=== PATIENT | male | born 1960 | race Caucasian/White ===

== ENCOUNTER → 2022-04-17 | Outpatient (CLI) | payer OTHER, SELFPAY ==
[2022-04-17 12:24] LABS: Absolute Lymphocyte Count 1.32 X10^3/uL (0.83-4.51); Absolute Neutrophil Count 4.5 X10^3/uL (2.0-7.7); Basophil# 0.06 X10^3/uL; Basophil% 0.9 % (0-1); Eosinophil# 0.22 X10^3/uL; Eosinophils% 3.2 % (0-5); Hemoglobin 14.8 g/dL (13.0-16.5); Lymphocyte # 1.32 X10^3/ul (0.83-4.51); Lymphocyte % 19.4 % (19-41); Mean Corp Hgb Conc 32.9 g/dL (32-36); Mean Platelet Vol. 11.1 fl (6.2-12.0); Monocyte# 0.59 X10^3/uL; Monocyte% 8.7 % (0-10); NRBC Flagged by Analyzer 0 % (0-5); Neutrophil # 4.54 X10^3/uL (2.7-7.7); Neutrophil % 66.8 % (47-70); Platelet Count 176 K/mm3 (150-450); RBC Distribution Width CV 15.3 % (11.6-14.6); RBC Distribution Width SD 45.8 fl (35.1-43.9); Red Blood Count 5.49 M/mm3 (4.6-6.2); White Blood Count 6.8 K/mm3 (4.4-11.0)
[2022-04-17 12:31] LABS: ALB/GLOB Ratio 0.9 RATIO (0.9-2.4); AST(SGOT) 19 U/L (15-37); Alanine Aminotransfer ALT/SGPT 25 U/L (16-61); Albumin, Serum 3.6 g/dL (3.2-5.0); Alkaline Phosphatase 45 U/L (45-117); Anion Gap 5 (5-15); BUN 14 mg/dL (7-18); BUN/Creat Ratio 15.8 RATIO (10-20); Calcium,Total 8.9 mg/dL (8.5-10.1); Chloride 107 mmol/L (98-107); Cholesterol 188 mg/dL (200); Creatinine, Serum 0.89 mg/dL (0.70-1.30); EST Glomerular Filtration Rate 93 mL/min (>60); Est Glom Filt Rate - Afr Amer 112 mL/min (>60); Glucose 93 mg/dL (74-106); High Density Lipoprotein 49 mg/dL; Protein, Total 7.6 g/dL (6.4-8.2); Sodium Level 140 mmol/L (136-145); Triglycerides 63 mg/dL; Very Low Density Lipoprotein 13 mg/dL (5-40)
[2022-04-17 12:35] LABS: Vitamin B12 974 pg/mL (211-911); Vitamin D,25 Hydroxy 50.9 ng/mL
== END | disposition home or self-care (01) ==
LOC: BIMLAB 10:53
PROVIDERS: PCP Internal Medicine; Referring Provider Internal Medicine; Visit Provider Internal Medicine
DX: Z00.00 Encounter for general adult medical examination without abnormal findings (principal); G11.4 Hereditary spastic paraplegia; E53.8 Deficiency of other specified B group vitamins; E55.9 Vitamin D deficiency, unspecified; E78.00 Pure hypercholesterolemia, unspecified
CPT/HCPCS: 36415; 80053; 80061; 82306; 82607; 85025

== ENCOUNTER → 2023-04-23 | Outpatient (CLI) | payer OTHER, SELFPAY ==
[2023-04-23 12:41] LABS: Absolute Lymphocyte Count 1.43 X10^3/uL (0.83-4.51); Absolute Neutrophil Count 6.3 X10^3/uL (2.0-7.7); Basophil# 0.04 X10^3/uL; Basophil% 0.5 % (0-1); Eosinophil# 0.17 X10^3/uL; Hematocrit 46.9 % (40-54); Lymphocyte # 1.43 X10^3/ul (0.83-4.51); Lymphocyte % 16.7 % (19-41); Mean Corpuscular Hgb 26.3 pg (27.0-32.0); Mean Corpuscular Volume 82.1 fL (80-94); Mean Platelet Vol. 11.1 fl (6.2-12.0); Monocyte# 0.64 X10^3/uL; Monocyte% 7.5 % (0-10); NRBC Flagged by Analyzer 0 % (0-5); Neutrophil # 6.26 X10^3/uL (2.7-7.7); Neutrophil % 73.1 % (47-70); Platelet Count 197 K/mm3 (150-450); RBC Distribution Width CV 16.4 % (11.6-14.6); RBC Distribution Width SD 48.7 fl (35.1-43.9); Red Blood Count 5.71 M/mm3 (4.6-6.2); White Blood Count 8.6 K/mm3 (4.4-11.0)
[2023-04-23 13:09] LABS: Vitamin B12 941 pg/mL (211-911); Vitamin D,25 Hydroxy 56.6 ng/mL
[2023-04-23 13:28] LABS: ALB/GLOB Ratio 0.9 RATIO (0.9-2.4); AST(SGOT) 18 U/L (15-37); Alanine Aminotransfer ALT/SGPT 26 U/L (16-61); Albumin, Serum 3.6 g/dL (3.2-5.0); Alkaline Phosphatase 42 U/L (45-117); Anion Gap 4 (5-15); BUN 15 mg/dL (7-18); BUN/Creat Ratio 18.1 RATIO (10-20); Calcium,Total 8.8 mg/dL (8.5-10.1); Chloride 109 mmol/L (98-107); Cholesterol 196 mg/dL (200); Creatinine, Serum 0.83 mg/dL (0.70-1.30); EST Glomerular Filtration Rate 100 mL/min (>60); Est Glom Filt Rate - Afr Amer 121 mL/min (>60); Glucose 103 mg/dL (74-106); High Density Lipoprotein 49 mg/dL; Potassium 4.3 mmol/L (3.5-5.1); Protein, Total 7.6 g/dL (6.4-8.2); Sodium Level 141 mmol/L (136-145); Triglycerides 90 mg/dL; Very Low Density Lipoprotein 18 mg/dL (5-40)
== END | disposition home or self-care (01) ==
LOC: BIMLAB 09:49
PROVIDERS: PCP Internal Medicine; Referring Provider Internal Medicine; Visit Provider Internal Medicine
DX: Z00.00 Encounter for general adult medical examination without abnormal findings (principal); G11.4 Hereditary spastic paraplegia; E53.8 Deficiency of other specified B group vitamins; E55.9 Vitamin D deficiency, unspecified; E78.00 Pure hypercholesterolemia, unspecified
CPT/HCPCS: 36415; 80053; 80061; 82306; 82607; 85025

== ENCOUNTER → 2023-08-28 | Outpatient (CLI) | payer OTHER, SELFPAY | END | disposition home or self-care (01) | LOC: LABSPEC 15:49 | PROVIDERS: PCP Internal Medicine; Visit Provider Internal Medicine | DX: J06.9 Acute upper respiratory infection, unspecified (principal) | CPT/HCPCS: 87502; 87635 ==

== ENCOUNTER → 2024-04-28 | Outpatient (CLI) | payer OTHER, SELFPAY ==
--- OUTSIDE RECORDS SUMMARY | 2024-04-28 08:30 | XMS RPT_ITS | CCD ---
Author Organization [facility] Care Team Providers Care Rack Room Worker Name Role Phone Mickey Schmidt MD Unavailable Asa Godinez MD Primary Care Provider Mickey Schmidt MD Unavailable Enedelia Godinez MD Primary Care Provider Mickey Schmidt MD Unavailable Herbert FUNEZ, Asa De La Torre Primary Care Provider Mickey Schmidt MD Unavailable Asa Godinez MD Primary Care Provider Unava ilable Herbert FUNEZ, Asa G Primary Care Provider [phone] Herbert FUNEZ, Asa De La Torre Primary Care Provider MICKEY SCHMIDT Referring Unavailable HERBERT, ASA G Primary Care Unavailable MICKEY SCHMIDT Referring Unavailable HERBERT, ASA G Primary Care Unavailable VERNELL ATKINSON Referring Unavailable HERBERT, ASA G Primary Care Unavailable VERNELL ATKINSON Referring Unavailable HERBERT, ASA G Primary Care Unavailable VERNELL ATKINSON Referring Unavailable HERBERT, ASA G Primary Care Unavailable HERBERT, ASA G Primary Care Unavailable CHRIS WISE Referring Unavai lable HERBERT, ASA G Primary Care Unavailable CHRIS WISE Referring Unavai lable HERBERT, ASA G Primary Care Unavailable CHRIS WISE Referring Unavai lable HERBERT, ASA G Primary Care Unavailable HERBERT, ASA G Primary Care Unavailable MICKEY SCHMIDT Attending Unavailable MICKEY SCHMIDT Referring Unavailable HERBERT, ASA G Primary Care Unavailable REJI FARR Attending Unavailable REJI FARR Referring Unavailable HERBERT, ASA G Primary Care Unavailable MICKEY SCHMIDT Attending Unavailable MICKEY SCHMIDT Referring Unavailable HERBERT, ASA G Primary Care Unavailable HERBERT, ASA G Primary Care Unavailable HERBERT, ASA G Primary Care Unavailable Medications Current Medications Medication Drug Class(es) Dates Sig (Normalized) Sig (Original) baclofen 10 mg oral tablet (19 sources) gamma-Aminobutyri c Acid-ergic Agonist Start: 06-12-2023 End: 01-21-2025 take 2 tablets by mouth three times daily baclofen 10 mg tablet Take 2 tablets by mouth three times a day. 540 tablet 3 01/22/2024 01/21/2025 Active Start: 06-06-2022 End: 06-06-2023 take 2 tablets by mouth three times daily baclofen (LIORESAL) 10 mg tablet Take 2 tablets by mouth three times daily. 540 tablet 3 06/06/2022 06/06/2023 Active Start: 04-26-2021 End: 04-26-2022 take 2 tablets by mouth three times daily baclofen (LIORESAL) 10 mg tablet Take 2 tablets by mouth three times daily. 540 tablet 3 04/26/2021 04/26/2022 Active Comment on above: Take 2 tablets by mo uth three times daily. Take 2 tablets by mo uth three times a day. cholecalciferol 0.025 mg oral capsule (20 sources) Vitamin D take 1 capsule by mouth once daily Cholecalciferol, Vitamin D3, 25 mcg (1,000 unit) cap Take 1,000 Units by mouth once daily. Active Comment on above: Take 1,000 Units by mouth once daily. gabapentin 100 mg oral capsule (20 sources) Anti-epileptic Agent Start: End: take 2 capsules by mouth once daily at bedtime gabapentin (NEURONTIN) 100 mg capsule Take 2 capsules by mouth daily at bedtime. 60 capsule 11 01/22/2024 01/21/2025 Active Start: 04-26-2021 End: 06-11-2024 take 1 capsule by mouth once daily at bedtime gabapentin (NEURONTIN) 300 mg capsule Take 1 capsule by mouth daily at bedtime. 90 capsule 3 06/12/2023 01/22/2024 Discontinued Comment on above: Take 1 capsule by mo ut daily at bedtime. lactulose 667 mg/ml oral solution (20 sources) Osmotic Laxative Start: 06-22-2021 lactulose (DUPHALAC, CONSTULOSE) 10 gram/15 mL solution Indications: Constipation, unspecified constipation type TAKE 30 ML EVERY OTHER DAY 450 mL 1 06/22/2021 Active Comment on above: TAKE 30 ML EVERY OTH ER DAY Msqew-5-JZK-EPA-Fis h Oil 1,000 mg (120 mg-180 mg) cap (16 sources) take 1 capsule by mouth once daily Pxwga-7-VUX-EPA-Fish Oil 1,000 mg (120 mg-180 mg) cap Take 1,000 mg by mouth once daily. Active take 1 capsule by mouth once elizabeth ly Lwyqr-2-WNP-EPA-Fish Oil 1,000 mg (120 mg- 180 mg) cap Take 1,000 mg by mouth once daily. 0 Active Comment on above: Take 1,000 mg by fidelina once daily. polyethylene glycol 3350 704454 mg / potassium chloride 2970 mg / sodium bicarbonate 6740 mg / sodium chloride 5860 mg / sodium sulfate 85040 mg powder for oral solution (2 sources) Osmotic Laxative Start: 2 End: 2 peg 3350-Electrolytes (GOLYTELY) 236-22.74-6.74 -5.86 gram suspension Take 4,000 mL by mouth one time only for 1 dose. Use as directed 1 Each 0 05/27/2022 05/27/2022 Active Comment on above: Take 4,000 mL by fidelina one time only for 1 dose. Use as directed solifenacin succinate 10 mg oral tablet (20 sources) Cholinergic Muscarinic Antagonist Start: 2 End: 5 take 1 tablet by mouth once daily solifenacin (VESICARE) 10 mg tablet Take 1 tablet by mouth once daily. 90 tablet 3 01/22/2024 01/21/2025 Active Start: 04-26-2021 End: 04-26-2022 take 1 tablet by mouth once daily solifenacin (VESICARE) 10 mg tablet Take 1 tablet by mouth once daily. 90 tablet 3 04/26/2021 Active Comment on above: Take 1 tablet by fidelina th once daily. tamsulosin hydrochloride 0.4 mg oral capsule (18 sources) alpha-Adrenergic Herman Start: 2 tamsulosin (FLOMAX) 0.4 mg 0.4 mg once daily. 10/16/2021 Active Comment on above: 0.4 mg once daily. vitamin b12 1 mg extended release oral tablet (20 sources) Vitamin B12 Start: 2 take 1 tablet by mouth once daily Cyanocobalamin 1,000 mcg TbER Indications: Vitamin B12 deficiency TAKE 1 TABLET BY MOUTH EVERY DAY 90 tablet 1 10/08/2021 Active Start: 04-24-2021 take 1 tablet by fidelina th once daily cyanocobalamin (VITAMIN B-12) 1,000 mcg tab Indications: Vitamin B12 deficiency Take 1 tablet by mouth once daily. 90 tablet 1 04/24/2021 Active Comment on above: Take 1 tablet by fidelina th once daily. TAKE 1 TABLET BY FIDELINA TH EVERY DAY Completed/Discontinued Medications Medication Drug Class(es) Dates Sig (Normalized) Sig (Original) onabotulinumtoxina 100 unt injection (6 sources) Acetylcholine Release Inhibitor Start: 05-23-2023 End: 05-23-2023 onabotulinum toxin type A 600 Units injection (BOTOX) Start: 02-21-2023 End: 02-21-2023 onabotulinum toxin type A 50 0 Units injection (BOTOX) Start: 11-08-2022 End: 11-08-2022 onabotulinum toxin type A 50 0 Units injection (BOTOX) Start: 06-25-2022 End: 06-25-2022 onabotulinum toxin type A 30 0 Units injection (BOTOX) Start: 03-21-2022 End: 03-21-2022 onabotulinum toxin type A 30 0 Units injection (BOTOX) Start: 12-13-2021 End: 12-13-2021 onabotulinum toxin type A 20 0 Units injection (BOTOX) Lactobacillus acidophilus (6 sources) End: 03-21-2022 Lactobacillus acidophilus (F LORAJEN ORAL) Take by mouth once daily. 0 03/21/2022 Discontinued Lactobacillus ac idophilus (FLORAJEN ORAL) Take by mouth once daily. 0 Active Comment on above: Take by mouth once d aily. Kdhqm-7-VEQ-EPA-Fish Oil (FISH OIL) 1,000 mg (120 mg-180 mg) cap (5 sources) take 1 capsule by mouth once daily Ubvfa-3-ZHC-EPA-Fish Oil (FISH OIL) 1,000 mg (120 mg-180 mg) cap Take 1,000 mg by mouth once daily. 0 Active Comment on above: Take 1,000 mg by fidelina th once daily. Problems Active Problems Problem Classification Problem Date Documented Da te Episodic/Chronic Hyperplasia of prostate (2 sources) Benign prostatic hyperplasia with lower urinary tract symptoms; Translations: [Nodular prostate with lower urinary tract symptoms] Onset: 07-08-2023 Chronic Other connective tissue disease (7 sources) Muscle spasticity present; Translations: [Other muscle spasm] Episodic Other connective tissue disease (1 source) Spasticity; Translations: [Cramp and spasm] Episodic Other diseases of bladder and urethra (3 sources) Overactive bladder; Translations: [Overactive bladder] Chronic Other hereditary and degenerative nervous system conditions (20 sources) Hereditary spastic paraplegia; 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] Onset: 10-10-2022 Chronic Other hereditary and degenerative nervous system conditions (1 source) Dystonia; 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] Chronic Residual codes; unclassified (2 sources) Family history of cancer of colon; Translations: [Family history of malignant neoplasm of digestive organs] Episodic Residual codes; unclassified (1 source) Bilateral lower limb edema; Translations: [Localized edema] 01-22-2024 Episodic Residual codes; unclassified (2 sources) Localized edema; Translations: [Localized edema] Onset: 01-28-2024 Episodic Past or Other Problems Problem Classification Problem Date Documented Da te Episodic/Chronic Genitourinary symptoms and ill-defined conditions (1 source) Other retention of urine; Translations: [Nodular prostate with urinary retention] Onset: 07-08-2023 Episodic Other diseases of kidney and ureters (1 source) Other obstructive and reflux uropathy; Translations: [Hypertrophy of prostate with urinary obstruction] Onset: 11-13-2023 Episodic Other screening for suspected conditions (not mental disorders or infectious disease) (5 sources) Patient encounter status; Translations: [Encounter for screening for malignant neoplasm of colon] Onset: 06-17-2023 Episodic Results Test Name Value Interpretation Reference Range Facility ECHO 03-10-2024 CONCLUSIONS: - Exam indication: Shortness of Breath - The left ventricle is normal in size. Left ventricular systolic function is normal. EF = 61 5% (2D 4-ch.) Normal left ventricular diastolic function. - The right ventricle is normal in size. Right ventricular systolic function is normal. Tricuspid annular displacement is 3.1 cm. - There are no significant valvular abnormalities. - There is no pericardial effusion. - The patient has not had a prior [facility] echocardiographic exam for comparison. * * * Final * * * [facility] Ech[facility] Report: Transthoracic Echo [facility] Date of service: 03/10/2024 2:17:15 PM Ordering physician: [facility] PROVIDER Indication: Shortness of Breath Technologist: Hermelinda Vallejo [facility] Interpreting physician: Juventino Delgado MD PATIENT: Name: GAURANG TORRES : 1960 Age: 63 years Gender: M Primary rhythm: sinus. Height: 188.00 cm BSA: 2.25 m Weight: 97.00 kg BMI: 27.4 kg/m Heart rate 69 bpm Blood pressure 129/72 mmHg Color Doppler was utilized to interrogate the cardiac valves assessed and spectral Doppler was utilized to determine the flow velocities and pressure gradients reported in this exam. MEASUREMENTS: Value Indexed Normal Max aortic dimension 3.7 cm Ao < 3.8 Left atrium diameter 4.2 cm (2D) Left atrial volume 74 ml (biplane A-L) 33 ml/m Lori <= 34 LV ID (diastole) 5.0 cm (2D) 2.22 cm/m LV ID (systole) 3.4 cm (2D) 1.50 cm/m IVS, leaflet tips 1.0 cm (2D) Posterior wall thickness 1.1 cm (2D) Left ventricular mass 193 g (2D) 86 g/m LV stroke volume 79 ml (2D 4-ch.) LV end diastolic volume 129 ml (2D 4-ch.) 57.3 ml/m 34<=EDVi<75 LV end systolic volume 50 ml (2D 4-ch.) 22.3 ml/m Ejection Fraction 61 % (2D 4-ch.) EF > 52 FINDINGS: LEFT VENTRICLE The left ventricle is normal in size. Left ventricular systolic function is normal. Normal left ventricular diastolic function. Mitral annular lateral E/e': 6.2. Mitral annular septal E/e': 7.0. Wall Motion: All scored segments are normal. RIGHT VENTRICLE The right ventricle is normal in size. Right ventricular systolic function is normal. Tricuspid annular displacement is 3.1 cm. Estimated right ventricular systolic pressure is likely underestimated due to a weak or incomplete tricuspid regurgitation signal and is, at least, 22 mmHg consistent with normal pulmonary artery pressures. Estimated right atrial pressure is 3 mmHg based on IVC assessment. LEFT ATRIUM The left atrial cavity is normal in size. RIGHT ATRIUM The right atrial cavity is normal in size. Inferior Vena Cava: The inferior vena cava appears normal measuring 2.0 cm. The vessel decreases greater than 50 percent with inspiration. MITRAL VALVE The mitral valve leaflets are structurally normal. There is trace mitral valve regurgitation. The peak mitral E/A ratio is 0.77. The average mitral E/e' ratio is 6.6. TRICUSPID VALVE The tricuspid valve leaflets are structurally normal. There is trace tricuspid valve regurgitation. AORTIC VALVE The aortic valve cusps are structurally normal. There is no aortic valve regurgitation. The peak gradient is 8 mmHg (peak velocity = 145.0 cm/s). The mean gradient is 4 mmHg. The aortic VTI is 28.5 cm. The mean velocity in the aortic valve is 98.2 cm/s. The dimensionless valve index is 0.88. PULMONIC VALVE The pulmonic valve cusps are structurally normal. There is trace pulmonic valve regurgitation. AORTA The visualized aorta is normal in size. Measurements - Sinus: 3.3 cm. Sinotubular junction 3.2 cm. Mid ascending aorta 3.7 cm. PERICARDIUM There is no pericardial effusion. [facility] Echocardiography Echocardiography Rep ort: Transthoracic Echo [facility] Date of service: 03/10/2024 2:17:15 PM Ordering physician: LIZ PROVIDER Indication: Shortness of Breath Technologist: Hermelinda Vallejo [facility] Interpreting physician: Juventino Delgado MD PATIENT: Name: GAURANG TORRES : 1960 Age: 63 years Gender: M Primary rhythm: sinus. Height: 188.00 cm BSA: 2.25 m Weight: 97.00 kg BMI: 27.4 kg/m Heart rate 69 bpm Blood pressure 129/72 mmHg Color Doppler was utilized to interrogate the cardiac valves assessed and spectral Doppler was utilized to determine the flow velocities and pressure gradients reported in this exam. MEASUREMENTS: Value Indexed Normal Max aortic dimension 3.7 cm Ao < 3.8 Left atrium diameter 4.2 cm (2D) Left atrial volume 74 ml (biplane A-L) 33 ml/m Lori <= 34 LV ID (diastole) 5.0 cm (2D) 2.22 cm/m LV ID (systole) 3.4 cm (2D) 1.50 cm/m IVS, leaflet tips 1.0 cm (2D) Posterior wall thickness 1.1 cm (2D) Left ventricular mass 193 g (2D) 86 g/m LV stroke volume 79 ml (2D 4-ch.) LV end diastolic volume 129 ml (2D 4-ch.) 57.3 ml/m 34<=EDVi<75 LV end systolic volume 50 ml (2D 4-ch.) 22.3 ml/m Ejection Fraction 61 % (2D 4-ch.) EF > 52 FINDINGS: LEFT VENTRICLE The left ventricle is normal in size. Left ventricular systolic function is normal. Normal left ventricular diastolic function. Mitral annular lateral E/e': 6.2. Mitral annular septal E/e': 7.0. Wall Motion: All scored segments are normal. RIGHT VENTRICLE The right ventricle is normal in size. Right ventricular systolic function is normal. Tricuspid annular displacement is 3.1 cm. Estimated right ventricular systolic pressure is likely underestimated due to a weak or incomplete tricuspid regurgitation signal and is, at least, 22 mmHg consistent with normal pulmonary artery pressures. Estimated right atrial pressure is 3 mmHg based on IVC assessment. LEFT ATRIUM The left atrial cavity is normal in size. RIGHT ATRIUM The right atrial cavity is normal in size. Inferior Vena Cava: The inferior vena cava appears normal measuring 2.0 cm. The vessel decreases greater than 50 percent with inspiration. MITRAL VALVE The mitral valve leaflets are structurally normal. There is trace mitral valve regurgitation. The peak mitral E/A ratio is 0.77. The average mitral E/e' ratio is 6.6. TRICUSPID VALVE The tricuspid valve leaflets are structurally normal. There is trace tricuspid valve regurgitation. AORTIC VALVE The aortic valve cusps are structurally normal. There is no aortic valve regurgitation. The peak gradient is 8 mmHg (peak velocity = 145.0 cm/s). The mean gradient is 4 mmHg. The aortic VTI is 28.5 cm. The mean velocity in the aortic valve is 98.2 cm/s. The dimensionless valve index is 0.88. PULMONIC VALVE The pulmonic valve cusps are structurally normal. There is trace pulmonic valve regurgitation. AORTA The visualized aorta is normal in size. Measurements - Sinus: 3.3 cm. Sinotubular junction 3.2 cm. Mid ascending aorta 3.7 cm. PERICARDIUM There is no pericardial effusion. CONCLUSIONS: - Exam indication: Shortness of Breath - The left ventricle is normal in size. Left ventricular systolic function is normal. EF = 61 5% (2D 4-ch.) Normal left ventricular diastolic function. - The right ventricle is normal in size. Right ventricular systolic function is normal. Tricuspid annular displacement is 3.1 cm. - There are no significant valvular abnormalities. - There is no pericardial effusion. - The patient has not had a prior [facility] echocardiographic exam for comparison. * * * Final * * * [facility] [employer] [facility] : [id number] Normal [facility] CBC W Auto Differential pane l (Bld)on 02-27-2024 Basophils (Bld) [#/Vol] 0.04 10*3/uL Normal <0.11 [facility] Comment on above: Order Comment: Mar marrero Type: BLOOD SPECIMEN Ordering Facility: [facility] Address: [address] [place], [place] [id number] Performed By: #### 5 7021-8 #### [facility] CLIA [id number] [address] [place], [place] [id number] [place] Basophils/100 WBC (Bld) 0.6 % Normal [facility] Comment on above: Order Comment: Mar marrero Type: BLOOD SPECIMEN Ordering Facility: [facility] Address: [address] [place] [address] Performed By: #### 5 7021-8 #### [facility] CLIA [id number] [address] [place] [address] [facility] [place] Differential cell count method Nom (Bld) Auto Normal [facility] Comment on above: Order Comment: Speci men Type: BLOOD SPECIMEN Ordering Facility: [facility] Address: [facility] [place] [address] Performed By: #### 5 7021-8 #### [facility] CLIA [id number] [address] [place] [address] [place] Eosinophils (Bld) [#/Vol] 0.26 10*3/uL Normal <0.46 [facility] Comment on above: Order Comment: Speci men Type: BLOOD SPECIMEN Ordering Facility: [facility] Address: [facility] [place] [address] Performed By: #### 5 7021-8 #### [facility] CLIA [id number] [address] [place] [address] [facility] Eosinophils/100 WBC (Bld) 4.0 % Normal [facility] Comment on above: Order Comment: Speci men Type: BLOOD SPECIMEN Ordering Facility: [facility] Address: [facility] [place] [address] Performed By: #### 5 7021-8 #### [facility] CLIA [id number] [address] [place] [address] [facility] [place] Erythrocyte distribution width (RBC) [Ratio] 15.5 % High 11.5-15.0 [facility] Comment on above: Order Comment: Speci men Type: BLOOD SPECIMEN Ordering Facility: [facility] Address: [facility] [place] [address] Performed By: #### 5 7021-8 #### [facility] CLIA [id number] [address] [place] [address] [facility] [place] Hematocrit (Bld) [Volume fraction] 42.6 % Normal 39.0-51.0 [facility] Comment on above: Order Comment: Speci men Type: BLOOD SPECIMEN Ordering Facility: [facility] Address: [facility] [place] [address] Performed By: #### 5 7021-8 #### [facility] CLIA [id number] [address] [place] [address] [place] Hemoglobin (Bld) [Mass/Vol] 13.4 g/dL Normal 13.0-17.0 [facility] Comment on above: Order Comment: Speci men Type: BLOOD SPECIMEN Ordering Facility: [facility] Address: [facility] [place] [address] Performed By: #### 5 7021-8 #### [facility] CLIA [id number] [address] [place] [address] [place] Immature granulocytes (Bld) [#/Vol] 10*3/uL Normal <0.10 [facility] Comment on above: Order Comment: Speci men Type: BLOOD SPECIMEN Ordering Facility: [facility] Address: [facility] [place] [address] Performed By: #### 5 7021-8 #### [facility] CLIA [id number] [address] [place] [address] [place] Immature granulocytes/100 WBC (Bld) 0.2 % Normal [facility] Comment on above: Order Comment: Speci men Type: BLOOD SPECIMEN Ordering Facility: [facility] Address: [facility] [place] [address] Performed By: #### 5 7021-8 #### [facility] CLIA [id number] [address] [place] [address] [place] Lymphocytes (Bld) [#/Vol] 1.64 10*3/uL Normal 1.00-4.00 [facility] Comment on above: Order Comment: Speci men Type: BLOOD SPECIMEN Ordering Facility: [facility] Address: [facility] [place] [address] Performed By: #### 5 7021-8 #### [facility] CLIA [id number] [address] [place] [address] [place] Lymphocytes/100 WBC (Bld) 25.5 % Normal [facility] Comment on above: Order Comment: Speci men Type: BLOOD SPECIMEN Ordering Facility: [facility] Address: [facility] [place] [address] Performed By: #### 5 7021-8 #### [facility] CLIA [id number] [address] [place] [address] [place] MCH (RBC) [Entitic mass] 25.3 pg Low 26.0-34.0 [facility] Comment on above: Order Comment: Speci men Type: BLOOD SPECIMEN Ordering Facility: [facility] Address: [facility] [place] [address] Performed By: #### 5 7021-8 #### [facility] CLIA [id number] [address] [place] [address] [place] MCHC (RBC) [Mass/Vol] 31.5 g/dL Normal 30.5-36.0 [facility] Comment on above: Order Comment: Speci men Type: BLOOD SPECIMEN Ordering Facility: [facility] Address: [facility] [place] [address] Performed By: #### 5 7021-8 #### [facility] CLIA [id number] [address] [place], [place] [address] [place] [address] [place] MCV (RBC) [Entitic vol] 80.5 fL Normal 80.0-100.0 [facility] Comment on above: Order Comment: Speci men Type: BLOOD SPECIMEN Ordering Facility: [facility] Address: [address] [place] [id number] Performed By: #### 5 7021-8 #### [facility] CLIA [id number] [address] [place] [address] [facility] [place] Monocytes (Bld) [#/Vol] 0.62 10*3/uL Normal <0.87 [facility] Comment on above: Order Comment: Speci men Type: BLOOD SPECIMEN Ordering Facility: [facility] Address: [facility] [place] [address] Performed By: #### 5 7021-8 #### [facility] CLIA [id number] [address] [place] [address] [place] Monocytes/100 WBC (Bld) 9.6 % Normal [facility] Comment on above: Order Comment: Speci men Type: BLOOD SPECIMEN Ordering Facility: [facility] Address: [facility] [place] [address] Performed By: #### 5 7021-8 #### [facility] CLIA [id number] [address] [place] [address] [place] Neutrophils (Bld) [#/Vol] 3.87 10*3/uL Normal 1.45-7.50 [facility] Comment on above: Order Comment: Speci men Type: BLOOD SPECIMEN Ordering Facility: [facility] Address: [facility] [place] [address] Performed By: #### 5 7021-8 #### [facility] CLIA [id number] [address] [place] [address] [place] Neutrophils/100 WBC (Bld) 60.1 % Normal [facility] Comment on above: Order Comment: Speci men Type: BLOOD SPECIMEN Ordering Facility: [facility] Address: [facility] [place] [address] Performed By: #### 5 7021-8 #### [facility] CLIA [id number] [address] [place] [address] [place] Nucleated RBC (Bld) [#/Vol] Normal [facility] [facility] Comment on above: Order Comment: Speci men Type: BLOOD SPECIMEN Ordering Facility: [facility] Address: [facility] [place] [address] Performed By: #### 5 7021-8 #### [facility] [place] [facility] CLIA [id number] [address] [place] [address] [place] Nucleated RBC/100 WBC (Bld) [Ratio] Normal [facility] Comment on above: Order Comment: Speci men Type: BLOOD SPECIMEN Ordering Facility: [facility] Address: [facility] [place] [address] Performed By: #### 5 7021-8 #### [facility] CLIA [id number] [address] [place] [address] [place] Platelet mean volume (Bld) [Entitic vol] 11.0 fL Normal 9.0-12.7 [facility] Comment on above: Order Comment: Speci men Type: BLOOD SPECIMEN Ordering Facility: [facility] Address: [place] [address] Performed By: #### 5 7021-8 #### [facility] [place] [facility] CLIA [id number] [address] [place] [address] [place] Platelets (Bld) [#/Vol] 185 10*3/uL Normal 150-400 [facility] Comment on above: Order Comment: Speci men Type: BLOOD SPECIMEN Ordering Facility: [facility] Address: [place] [address] Performed By: #### 5 7021-8 #### [facility] [place] [facility] CLIA [id number] [address] [place] [address] [place] RBC (Bld) [#/Vol] 5.29 10*6/uL Normal 4.20-6.00 [facility] Comment on above: Order Comment: Speci men Type: BLOOD SPECIMEN Ordering Facility: [facility] Address: [place] [address] Performed By: #### 5 7021-8 #### [facility] [place] [facility] CLIA [id number] [address] [place] [address] [place] WBC (Bld) [#/Vol] 6.44 10*3/uL Normal 3.70-11.00 [facility] Comment on above: Order Comment: Speci men Type: BLOOD SPECIMEN Ordering Facility: [facility] Address: [place] [address] Performed By: #### 5 7021-8 #### [facility] [place] [facility] CLIA [id number] [address] [place] [address] [facility] [place] Comprehensive metabolic 2000 panelon 02-27-2024 Albumin [Mass/Vol] 4.1 g/dL Normal 3.9-4.9 [facility] Comment on above: Order Comment: Speci men Type: BLOOD SPECIMEN Ordering Facility: [facility] Address: [address] [place] [address] Performed By: #### 2 4323-8, 41790-7 #### [facility] [place] [facility] CLIA [id number] [address] [place] [address] [place] ALP [Catalytic activity/Vol] 41 U/L Normal 38-113 [facility] Comment on above: Order Comment: Speci men Type: BLOOD SPECIMEN Ordering Facility: [facility] Address: [address] [place] [address] Performed By: #### 2 4323-8, 01934-2 #### [facility] [place] CLIA [id number] [address] [place] [address] [place] ALT With P-5'-P [Catalytic activity/Vol] 17 U/L Normal 10-54 [facility] Comment on above: Order Comment: Speci men Type: BLOOD SPECIMEN Ordering Facility: [facility] Address: [address] [place] [address] Performed By: #### 2 4323-8, 66741-1 #### [facility] [place] CLIA [id number] [address] [place] [address] [place] Anion gap [Moles/Vol] 10 mmol/L Normal 8-15 [facility] Comment on above: Order Comment: Speci men Type: BLOOD SPECIMEN Ordering Facility: [facility] Address: [address] [place] [address] Performed By: #### 2 4323-8, 19133-2 #### [facility] [place] CLIA [id number] [address] [place] [address] [place] AST With P-5'-P [Catalytic activity/Vol] 16 U/L Normal 14-40 [facility] Comment on above: Order Comment: Speci men Type: BLOOD SPECIMEN Ordering Facility: [facility] Address: [address] [place] [address] Performed By: #### 2 4323-8, 62638-1 #### [facility] [place] CLIA [id number] [address] [place] [address] [place] Bilirubin [Mass/Vol] 0.8 mg/dL Normal 0.2-1.3 [facility] Comment on above: Order Comment: Speci men Type: BLOOD SPECIMEN Ordering Facility: [facility] Address: [place] [address] Performed By: #### 2 4323-8, 50048-1 #### [facility] [place] [facility] CLIA [id number] [address] [place] [address] [place] Calcium [Mass/Vol] 8.7 mg/dL Normal 8.5-10.2 [facility] Comment on above: Order Comment: Speci men Type: BLOOD SPECIMEN Ordering Facility: [facility] Address: [address] [place] [address] Performed By: #### 2 4323-8, 06008-9 #### [facility] [place] CLIA [id number] [address] [place] [address] [place] Chloride [Moles/Vol] 105 mmol/L Normal 98-107 [facility] Comment on above: Order Comment: Speci men Type: BLOOD SPECIMEN Ordering Facility: [facility] Address: [place] [address] Performed By: #### 2 4323-8, 33140-3 #### [facility] [place] CLIA [id number] [address] [place] [address] [place] CO2 [Moles/Vol] 27 mmol/L Normal 22-30 [facility] Comment on above: Order Comment: Speci men Type: BLOOD SPECIMEN Ordering Facility: [facility] Address: [place] [address] Performed By: #### 2 4323-8, 97320-1 #### [facility] [place] CLIA [id number] [address] [place] [address] [place] Creatinine [Mass/Vol] 0.92 mg/dL Normal 0.73-1.22 [facility] Comment on above: Order Comment: Speci men Type: BLOOD SPECIMEN Ordering Facility: [facility] Address: [place] [address] Performed By: #### 2 4323-8, 00183-6 #### [facility] CLIA [id number] [address] [place] [address] [facility] [place] Creatinine and Glomerular filtration rate.predicted panel (S/P/Bld) 94 mL/min/1.73m??? Normal >=60 [facility] Comment on above: Order Comment: Mar marrero Type: BLOOD SPECIMEN Ordering Facility: [facility] Address: [address] [place] [address] Result Comment: Court mated Glomerular Filtration Rate (eGFR) is calculated using the 2020 CKD-EPI creatinine equation. This equation utilizes serum creatinine, sex, and age as parameters. The creatinine assay has traceable calibration to isotope dilution-mass spectrometry. Refer to KDIGO guidelines for clinical interpretation. In patients with unstable renal function, e.g. those with acute kidney injury, the eGFR may not accurately reflect actual GFR. Performed By: #### 2 4323-8, 14357-2 #### [facility] CLIA [id number] [address] [place] [address] [place] Glucose [Mass/Vol] 92 mg/dL Normal 74-99 [facility] Comment on above: Order Comment: Mar marrero Type: BLOOD SPECIMEN Ordering Facility: [facility] Address: [address] [place] [address] Result Comment: The [place] Diabetes Association (ADA) provides guidance for cutoff values for fasting glucose and random glucose. The ADA defines fasting as no caloric intake for at least 8 hours. Fasting plasma glucose results between 100 to 125 mg/dL indicate increased risk for diabetes (prediabetes). Fasting plasma glucose results greater than or equal to 126 mg/dL meet the criteria for diagnosis of diabetes. In the absence of unequivocal hyperglycemia, results should be confirmed by repeat testing. In a patient with classic symptoms of hyperglycemia or hyperglycemic crisis, random plasma glucose results greater than or equal to 200 mg/dL meet the criteria for diagnosis of diabetes. Reference: Standards of Medical Care in Diabetes 2016, [place] [employer] Association. Diabetes Care. 2016.39(Suppl 1). Performed By: #### 2 4323-8, 10511-3 #### [facility] CLIA [id number] [address] [place] [address] [place] Potassium [Moles/Vol] 4.0 mmol/L Normal 3.7-5.1 [facility] Comment on above: Order Comment: Speci men Type: BLOOD SPECIMEN Ordering Facility: [facility] Address: [address] [place] [address] Performed By: #### 2 4323-8, 92002-1 #### [facility] CLIA [id number] [address] [place] [address] [place] Protein [Mass/Vol] 7.0 g/dL Normal 6.3-8.0 [facility] Comment on above: Order Comment: Speci men Type: BLOOD SPECIMEN Ordering Facility: [facility] Address: [facility] [place] [address] Performed By: #### 2 4323-8, 61793-0 #### [facility] [place] [facility] CLIA [id number] [address] [place] [address] [place] Sodium [Moles/Vol] 142 mmol/L Normal 136-144 [facility] Comment on above: Order Comment: Speci men Type: BLOOD SPECIMEN Ordering Facility: [facility] Address: [facility] [place] [address] Performed By: #### 2 4323-8, 76512-2 #### [facility] [place] [facility] CLIA [id number] [address] [place] [address] [place] Urea nitrogen [Mass/Vol] 15 mg/dL Normal 9-24 [facility] Comment on above: Order Comment: Speci men Type: BLOOD SPECIMEN Ordering Facility: [facility] Address: [facility] [place] [address] Performed By: #### 2 4323-8, 78119-1 #### [facility] [place] CLIA [id number] [address] [place] [address] [place] NT-proBNP [facility] 02-26 Natriuretic peptide.B prohormone N-Terminal [Mass/Vol] <36 Normal <125 [facility] Comment on above: Order Comment: Speci men Type: BLOOD SPECIMEN Ordering Facility: [facility] Address: [address] [place] [address] Performed By: #### 2 4323-8, 72223-5 #### [facility] CLIA [id number] [address] [place] [address] [facility] Comprehensive metabolic 2000 panelon 01-28-2024 Albumin [Mass/Vol] 4.0 g/dL Normal 3.9-4.9 [facility] Comment on above: Order Comment: Speci men Type: BLOOD SPECIMEN Ordering Facility: [facility] Address: [address] [place] [address] Performed By: #### 2 4323-8 #### [facility] [place] CLIA [id number] [address] [place] [address] [place] ALP [Catalytic activity/Vol] 45 U/L Normal 38-113 [facility] Comment on above: Order Comment: Speci men Type: BLOOD SPECIMEN Ordering Facility: [facility] Address: [address] [place] [address] Performed By: #### 2 4323-8 #### [facility] CLIA [id number] [address] [place] ALT With P-5'-P [Catalytic activity/Vol] 20 U/L Normal 10-54 [facility] Comment on above: Order Comment: Speci men Type: BLOOD SPECIMEN Ordering Facility: [facility] Address: [address] [place] [address] Performed By: #### 2 4323-8 #### [facility] [place] [facility] CLIA [id number] [address] [place] [address] [place] Anion gap [Moles/Vol] 8 mmol/L Normal 8-15 [facility] Comment on above: Order Comment: Speci men Type: BLOOD SPECIMEN Ordering Facility: [facility] Address: [address] [place] [address] Performed By: #### 2 4323-8 #### [facility] [place] [facility] CLIA [id number] [address] [place] [address] [place] AST With P-5'-P [Catalytic activity/Vol] 17 U/L Normal 14-40 [facility] Comment on above: Order Comment: Speci men Type: BLOOD SPECIMEN Ordering Facility: [facility] Address: [address] [place] [address] Performed By: #### 2 4323-8 #### [facility] [place] [facility] CLIA [id number] [address] [place] [address] [place] Bilirubin [Mass/Vol] 0.7 mg/dL Normal 0.2-1.3 [facility] Comment on above: Order Comment: Speci men Type: BLOOD SPECIMEN Ordering Facility: [facility] Address: [address] [place] [address] Performed By: #### 2 4323-8 #### [facility] [place] [facility] CLIA [id number] [address] [place] [address] [place] Calcium [Mass/Vol] 8.5 mg/dL Normal 8.5-10.2 [facility] Comment on above: Order Comment: Speci men Type: BLOOD SPECIMEN Ordering Facility: [facility] Address: [address] [place] [address] Performed By: #### 2 4323-8 #### [facility] [place] [facility] CLIA [id number] [address] [place] [address] [place] Chloride [Moles/Vol] 106 mmol/L Normal 98-107 [facility] Comment on above: Order Comment: Speci men Type: BLOOD SPECIMEN Ordering Facility: [facility] Address: [address] [place] [address] Performed By: #### 2 4323-8 #### [facility] [place] [facility] CLIA [id number] [address] [place] [address] [place] CO2 [Moles/Vol] 27 mmol/L Normal 22-30 [facility] Comment on above: Order Comment: Speci men Type: BLOOD SPECIMEN Ordering Facility: [facility] Address: [address] [place] [address] Performed By: #### 2 4323-8 #### [facility] [place] [facility] CLIA [id number] [address] [place] [address] [place] Creatinine [Mass/Vol] 0.89 mg/dL Normal 0.73-1.22 [facility] Comment on above: Order Comment: Mar marrero Type: BLOOD SPECIMEN Ordering Facility: [facility] Address: [address] [place] [address] Performed By: #### 2 4323-8 #### [facility] CLIA [id number] [address] [place] [address] [facility] [place] Creatinine and Glomerular filtration rate.predicted panel (S/P/Bld) 97 mL/min/1.73m??? Normal >=60 [facility] Comment on above: Order Comment: Mar marrero Type: BLOOD SPECIMEN Ordering Facility: [facility] Address: [address] [place] [address] Result Comment: Court mated Glomerular Filtration Rate (eGFR) is calculated using the 2020 CKD-EPI creatinine equation. This equation utilizes serum creatinine, sex, and age as parameters. The creatinine assay has traceable calibration to isotope dilution-mass spectrometry. Refer to KDIGO guidelines for clinical interpretation. In patients with unstable renal function, e.g. those with acute kidney injury, the eGFR may not accurately reflect actual GFR. Performed By: #### 2 4323-8 #### [facility] CLIA [id number] [address] [place] [address] [place] Glucose [Mass/Vol] 101 mg/dL High 74-99 [facility] Comment on above: Order Comment: Mar marrero Type: BLOOD SPECIMEN Ordering Facility: [facility] Address: [address] [place] [address] Result Comment: The [place] Diabetes Association (ADA) provides guidance for cutoff values for fasting glucose and random glucose. The ADA defines fasting as no caloric intake for at least 8 hours. Fasting plasma glucose results between 100 to 125 mg/dL indicate increased risk for diabetes (prediabetes). Fasting plasma glucose results greater than or equal to 126 mg/dL meet the criteria for diagnosis of diabetes. In the absence of unequivocal hyperglycemia, results should be confirmed by repeat testing. In a patient with classic symptoms of hyperglycemia or hyperglycemic crisis, random plasma glucose results greater than or equal to 200 mg/dL meet the criteria for diagnosis of diabetes. Reference: Standards of Medical Care in Diabetes 2016, [place] Diabetes [employer]. Diabetes Care. 2016.39(Suppl 1). Performed By: #### 2 4323-8 #### [facility] [place] [facility] CLIA [id number] [address] [place] [address] [place] Potassium [Moles/Vol] 4.1 mmol/L Normal 3.7-5.1 [facility] Comment on above: Order Comment: Speci men Type: BLOOD SPECIMEN Ordering Facility: [facility] Address: [address] [place] [address] Performed By: #### 2 4323-8 #### [facility] [place] [facility] CLIA [id number] [address] [place] [address] [place] Protein [Mass/Vol] 6.9 g/dL Normal 6.3-8.0 [facility] Comment on above: Order Comment: Speci men Type: BLOOD SPECIMEN Ordering Facility: [facility] Address: [address] [place] [address] Performed By: #### 2 4323-8 #### [facility] [place] [facility] CLIA [id number] [address] [place] [address] [place] Sodium [Moles/Vol] 141 mmol/L Normal 136-144 [facility] Comment on above: Order Comment: Speci men Type: BLOOD SPECIMEN Ordering Facility: [facility] Address: [address] [place] [address] Performed By: #### 2 4323-8 #### [facility] [place] [facility] CLIA [id number] [address] [place] [address] [place] Urea nitrogen [Mass/Vol] 15 mg/dL Normal 9-24 [facility] Comment on above: Order Comment: Speci men Type: BLOOD SPECIMEN Ordering Facility: [facility] Address: [address] [place] [address] Performed By: #### 2 4323-8 #### [facility] [place] [facility] CLIA [id number] [address] [place] [address] [facility] ECG COMPLETEon 01-28-2024 ECG COMPLETE Ventricular Rate : 7 7 BPM Atrial Rate : 77 BPM P-R Interval : 178 ms QRS Duration : 102 ms Q-T Interval : 382 ms QTC Calculation(Bazett) : 432 ms Calculated P [place] : 54 degrees Calculated R [place] : 2 degrees Calculated T [place] : 32 degrees NORMAL SINUS RHYTHM NORMAL ECG NO PREVIOUS ECGS AVAILABLE Confirmed by MD DELGADO VINAYAK ([id number]) on 01/28/2024 3:58:13 PM NAME : GAURANG TORRES PID : [id number] : 1960 Gender : Male Race : ORD : [id number] Procedure Date : Jan 28 2024 08:56:30 Edit Date : Jan 28 2024 15:58:14 Diagnosis: NORMAL SINUS RHYTHM NORMAL ECG NO PREVIOUS ECGS AVAILABLE Confirmed by MD DELGADO VINAYAK ([id number]) on 01/28/2024 3:58:13 PM Test Reason : HCS Location : 191 : LDCARD Overread By : MD DELGADO VINAYAK Edited By : MD DELGADO VINAYAK Referred By : MICKEY SCHMIDT [facility] Office Visit (NRMDN) GUSTABO TORRESNT Serenity ([id number]) 1960 M Date Time Provider Department 01/22/24 4:30 PM MICKEY SCHMIDT NRDARIANA During your visit today, we recorded the following information about you: Pulse Blood pressure Weight Height 84/minute 116/75 97.3 kg 1.88 m Mickey Schmidt MD 01/22/2024 7:01 PM Signed [facility] - FOLLOW UP EVALUATION Asa Godinez MD [id number] [facility] [facility] [address] Dear Asa Godinez MD: I had the pleasure of seeing Mr. Torres for follow-up today. As you know he is a 63 year old left-handed male with a history of history of hereditary spastic paraparesis since early adulthood . He is seen alone. Subjective Previous Plan-06/12/2023 Visit: [facility] - Medications renewed today. Overactive bladder - Continue Vesicare Interval History: He is getting leg swelling for 3 months. No chest pain or shortness of breath. He remains on Neurontin 300 HS for RLS but this has been well controlled. Spasticity has been about the same but balance is worse. He is taking the Vesicare every other day. Movement Disorders Medications Schedule - as of the start of the visit: Medications AM Noon PM Baclofen 10 mg 2 2 2 Gabapentin 300 mg 1 Vesicare 10 mg 1 Other Movement Disorder Prior Therapies Gabapentin Baclofen Questionnaires: Mood/Behavior Depression: PHQ-9 Score: 2 usually representing no significant (0-4) depression. Anxiety: Finally, the following table shows the patient's overall global physical and mental health using the PROMIS scale: PROMIS-10 Flowsheet Row Office Visit from 01/22/2024 in Neurology Office Visit from 05/23/2023 in Neurology Global Physical Health T Score 47.7 50.8 Global Mental Health T Score 50.8 48.3 0-10 Standard Pain Scale 4 5 *PROMIS-10 scoring scale: mean = 50, over 50 is above average, under 50 is below average ALLERGIES No Known Allergies Current Outpatient Medications Medication Sig solifenacin (VESICARE) 10 mg tablet Take 1 tablet by mouth once daily. gabapentin (NEURONTIN) 300 mg capsule Take 1 capsule by mouth daily at bedtime. baclofen 10 mg tablet Take 2 tablets by mouth three times a day. tamsulosin (FLOMAX) 0.4 mg 0.4 mg once daily. Cyanocobalamin 1,000 mcg TbER TAKE 1 TABLET BY MOUTH EVERY DAY lactulose (DUPHALAC, CONSTULOSE) 10 gram/15 mL solution TAKE 30 ML EVERY OTHER DAY (Patient taking differently: TAKE 30 ML EVERY DAY) Ybylg-6-AHY-EPA-Fish Oil 1,000 mg (120 mg-180 mg) cap Take 1,000 mg by mouth once daily. Cholecalciferol, Vitamin D3, 25 mcg (1,000 unit) cap Take 1,000 Units by mouth once daily. No current facility-administered medications for this visit. Objective Vital Signs: BP 116/75 (BP Site: Left Arm, BP Position: Sitting, BP Cuff Size: Regular Adult) Pulse 84 Ht 188 cm (6' 2 ) Wt 97.3 kg (214 lb 8.1 oz) SpO2 97% BMI 27.54 kg/m? Orthostatic Vitals: None for this encounter Weight: 97.3 kg (214 lb 8.1 oz) Height: 188 cm (6' 2 ) No LMP for male patient. Body mass index is 27.54 kg/m?. General Physical Examination: Extremities: Pitting edema in both legs up above the knee bilaterally General Neurological Examination: Neurological Exam Mental Status Awake, alert and oriented to person, place and time. Recent and remote memory are intact. Speech is normal. Language is fluent with no aphasia. Cranial Nerves CN II-XII grossly intact, except as otherwise noted. Motor Normal muscle bulk throughout. Normal muscle tone. The following abnormal movements were seen: Strength is 5/5 throughout all four extremities. He has left > right spasticity more so in the legs. Gait Casual gait: Wide stance. Spastic gait. Assessment and Plan: Assessment Mr. Torres is a left-handed 63 year old year old male with hereditary spastic paraparesis. The following are the current problems noted and addressed during this visit: Bilateral leg edema Overactive bladder Muscle spasticity Hsp (hereditary spastic paraplegia) (formerly [facility]) (primary encounter diagnosis) Plan 01/22/2024 Visit: HSP - Continue baclofen Leg swelling - I am ordering labs to check your kidneys and an EKG to look at your heart. It will be important to follow up with Dr. Godinez for this soon. Restless Legs Syndrome - Lets reduce the Neurontin to 200 mg at bedtime. If you do well can reduce further since you are doing well. Sometimes, Neurontin can cause leg swelling but usually in higher doses. Patient's perception of importance for healthcare provider to let them know of research trials for which they may be eligible? Somewhat important Updated Movement Disorders Medication Schedule: Medications AM Noon PM Baclofen 10 mg 2 2 2 Gabapentin 300 mg 1 Vesicare 10 mg 1 Thank you for allowing me to be part of the clinical care of this patient! I look forward to continued part (more content not included)... Normal [facility] PSA/PROSTATE SPECIFIC ANTIGE N SCREENINGon 05-09-2024 Prostate specific Ag [Mass/Vol] 2.00 ng/mL Normal <2.60 [facility] Comment on above: Order Comment: Speci men Type: BLOOD SPECIMEN Ordering Facility: [facility] Address: [facility] [place] [address] Result Comment: Tota l PSA test methodology used is the Electrochemiluminescence Immunoassay by [employer]. Total PSA values by differing methodologies cannot be interchanged. Performed By: #### P SAS1 #### [facility] CLIA [id number] [address] [place] [address] [place] Basic metabolic 2000 panelon 07-08-2023 Anion gap [Moles/Vol] 9 mmol/L Normal 9-18 [facility] Comment on above: Order Comment: Speci men Type: BLOOD SPECIMEN [place]ing Facility: [facility] [facility] [place] Address: [address] [place] [address] Performed By: #### 2 4321-2 #### [facility] CLIA [id number] [address] [place] [address] [place] Calcium [Mass/Vol] 8.9 mg/dL Normal 8.5-10.2 [facility] Comment on above: Order Comment: Speci men Type: BLOOD SPECIMEN Ordering Facility: [facility] [place] [facility] [place] Address: [address] [place] [address] Performed By: #### 2 4321-2 #### [facility] CLIA [id number] [address] [place] [address] [place] Chloride [Moles/Vol] 105 mmol/L Normal 97-105 [facility] Comment on above: Order Comment: Speci men Type: BLOOD SPECIMEN Ordering Facility: [facility] [place] [facility] [place] Address: [address] [place] [address] Performed By: #### 2 4321-2 #### [facility] CLIA [id number] [address] [place] [address] [place] CO2 [Moles/Vol] 27 mmol/L Normal 22-30 [facility] Comment on above: Order Comment: Speci men Type: BLOOD SPECIMEN Ordering Facility: [facility] [place] [facility] [place] Address: [address] [place] [address] Performed By: #### 2 4321-2 #### [facility] CLIA [id number] [address] [place] [address] [facility] Creatinine [Mass/Vol] 0.90 mg/dL Normal 0.73-1.22 [facility] Comment on above: Order Comment: Mar men Type: BLOOD SPECIMEN Ordering Facility: [facility] [place] [facility] [place] Address: [address] [place] [address] Performed By: #### 2 4321-2 #### [facility] CLIA [id number] [address] [place] [address] [facility] Creatinine and Glomerular filtration rate.predicted panel (S/P/Bld) 97 mL/min/1.73m??? Normal >=60 [facility] Comment on above: Order Comment: Kunalirvin marrero Type: BLOOD SPECIMEN Ordering Facility: [facility] [place] [facility] [place] Address: [address] [place] [address] Result Comment: Court mated Glomerular Filtration Rate (eGFR) is calculated using the 2020 CKD-EPI creatinine equation. This equation utilizes serum creatinine, sex, and age as parameters. The creatinine assay has traceable calibration to isotope dilution-mass spectrometry. Refer to KDIGO guidelines for clinical interpretation. In patients with unstable renal function, e.g. those with acute kidney injury, the eGFR may not accurately reflect actual GFR. Performed By: #### 2 4321-2 #### [facility] CLIA [id number] [address] [place] [address] [place] Glucose [Mass/Vol] 89 mg/dL Normal 74-99 [facility] Comment on above: Order Comment: Mar marrero Type: BLOOD SPECIMEN Ordering Facility: [facility] [place] [facility] [place] Address: [address] [place] [address] Result Comment: The [place] Diabetes Association (ADA) provides guidance for cutoff values for fasting glucose and random glucose. The ADA defines fasting as no caloric intake for at least 8 hours. Fasting plasma glucose results between 100 to 125 mg/dL indicate increased risk for diabetes (prediabetes). Fasting plasma glucose results greater than or equal to 126 mg/dL meet the criteria for diagnosis of diabetes. In the absence of unequivocal hyperglycemia, results should be confirmed by repeat testing. In a patient with classic symptoms of hyperglycemia or hyperglycemic crisis, random plasma glucose results greater than or equal to 200 mg/dL meet the criteria for diagnosis of diabetes. Reference: Standards of Medical Care in Diabetes 2016, [place] Diabetes Association. Diabetes Care. 2016.39(Suppl 1). Performed By: #### 2 4321-2 #### [facility] CLIA [id number] [address] [place] [address] [place] Potassium [Moles/Vol] 4.2 mmol/L Normal 3.7-5.1 [facility] Comment on above: Order Comment: Speci men Type: BLOOD SPECIMEN Ordering Facility: [facility] [place] [facility] [place] Address: [address] [place] [address] Performed By: #### 2 4321-2 #### [facility] CLIA [id number] [address] [place], [place] [id number] [place] Sodium [Moles/Vol] 141 mmol/L Normal 136-144 [facility] Comment on above: Order Comment: Speci men Type: BLOOD SPECIMEN Ordering Facility: [facility] [place] [facility] [place] Address: [address] [place] [address] Performed By: #### 2 4321-2 #### [facility] CLIA [id number] [address] [place] [address] [place] Urea nitrogen [Mass/Vol] 16 mg/dL Normal 9-24 [facility] Comment on above: Order Comment: Speci men Type: BLOOD SPECIMEN Ordering Facility: [facility] [place] [facility] [place] Address: [address] [place] [address] Performed By: #### 2 4321-2 #### [facility] CLIA [id number] [address] [place] [address] [place] PSA/PROSTSPECAG SCRNon 07-08 Prostate specific Ag [Mass/Vol] 3.02 ng/mL High <2.60 [facility] Comment on above: Order Comment: Mar marrero Type: BLOOD SPECIMEN Ordering Facility: [facility] [place] [facility] [place] Address: [address] [place] [address] Result Comment: Tota l PSA test methodology used is the Electrochemiluminescence Immunoassay by [employer]. Total PSA values by differing methodologies cannot be interchanged. For an individual patient, the significance of a PSA level should be interpreted in a broad clinical context, including age, race, family history, digital rectal exam, prostate size, results of prior testing (prostate biopsy, free PSA, PCA3), and use of 5-alpha reductase inhibitors. Considering the high incidence of asymptomatic cancer in the general population that may not pose an ultimate risk to a patient, the decision to recommend urological evaluation or prostate biopsy should be individualized after consideration of all these factors. REFERENCE: Charleen Lovett M.D., M.P.H., Sylvia Gallo M.D., Ph.D., Everett Redman M.D., Makenna Rose, M.P.H., Kenzie Hernandez, Sc.D. Effect of Verification Bias on Screening for Prostate Cancer by Measurement of Prostatic Specific Antigen. N Engl J Med 2003,349:335-42. Performed By: #### P SAS1 #### [facility] CLIA [id number] [address] [place] [address] [place] PSA/PROSTSPECAG SCRNon 06-17 Prostate specific Ag [Mass/Vol] 9.22 ng/mL High <2.60 [facility] Comment on above: Order Comment: Speci men Type: BLOOD SPECIMEN Ordering Facility: External Submitter Address: , , Result Comment: Tota l PSA test methodology used is the Electrochemiluminescence Immunoassay by [employer]. Total PSA values by differing methodologies cannot be interchanged. For an individual patient, the significance of a PSA level should be interpreted in a broad clinical context, including age, race, family history, digital rectal exam, prostate size, results of prior testing (prostate biopsy, free PSA, PCA3), and use of 5-alpha reductase inhibitors. Considering the high incidence of asymptomatic cancer in the general population that may not pose an ultimate risk to a patient, the decision to recommend urological evaluation or prostate biopsy should be individualized after consideration of all these factors. REFERENCE: Charleen Lovett M.D., M.P.H., Sylvia Gallo M.D., Ph.D., Everett Redman M.D., Makenna Rose M.P.H., Kenzie Hernandez Sc.D. Effect of Verification Bias on Screening for Prostate Cancer by Measurement of Prostatic Specific Antigen. N Engl J Med 2003,349:335-42. Performed By: #### P SAS1 #### [facility] CLIA [id number] [address] CNOVon 06-12-2023 CNOV Office Visit (NRMDN) GAURANG TORRES ([id number]) 1960 M Date Time Provider Department 06/12/23 4:30 PM [facility] During your visit today, we recorded the following information about you: Pulse Blood pressure Weight Height 86/minute 128/86 88.5 kg 1.88 m Mickey Schmidt MD 06/12/2023 5:05 PM Signed [facility] - FOLLOW UP EVALUATION Asa Godinez MD [address] [facility] [id number] Dear Asa Godinez MD: I had the pleasure of seeing Mr. Torres for follow-up today. As you know he is a 62 year old left-handed male with a history of history of hereditary spastic paraparesis since early adulthood . He is seen alone. Subjective Previous Plan-12/05/2022 Visit: HSP - Doing well, No changes today. Follow up 6-12 months. Interval History: He is doing OK. His left leg is giving more trouble with stairs. He doesn't fall. He uses a cane and walker, mostly the cane. At home he holds onto the wall. He has a grab bar by the shower. Movement Disorders Medications Schedule - as of the start of the visit: Medications AM Noon PM Baclofen 10 mg 2 2 2 Gabapentin 300 mg 1 Vesicare 10 mg 1 Other Movement Disorder Prior Therapies Gabapentin Baclofen ALLERGIES No Known Allergies Current Outpatient Medications Medication Sig tamsulosin (FLOMAX) 0.4 mg 0.4 mg once daily. Cyanocobalamin 1,000 mcg TbER TAKE 1 TABLET BY MOUTH EVERY DAY lactulose (DUPHALAC, CONSTULOSE) 10 gram/15 mL solution TAKE 30 ML EVERY OTHER DAY (Patient taking differently: TAKE 30 ML EVERY DAY) Lecpg-5-OYL-EPA-Fish Oil 1,000 mg (120 mg-180 mg) cap Take 1,000 mg by mouth once daily. Cholecalciferol, Vitamin D3, 25 mcg (1,000 unit) cap Take 1,000 Units by mouth once daily. solifenacin (VESICARE) 10 mg tablet Take 1 tablet by mouth once daily. gabapentin (NEURONTIN) 300 mg capsule Take 1 capsule by mouth daily at bedtime. baclofen 10 mg tablet Take 2 tablets by mouth three times a day. No current facility-administered medications for this visit. Objective Vital Signs: BP 128/86 (BP Site: Left Arm, BP Position: Sitting, BP Cuff Size: Regular Adult) Pulse 86 Ht 188 cm (6' 2 ) Wt 88.5 kg (195 lb) SpO2 97% BMI 25.04 kg/m? Orthostatic Vitals: None for this encounter No LMP for male patient. Body mass index is 25.04 kg/m?. General Physical Examination: General Exam General Neurological Examination: Neurological Exam Mental Status Awake, alert and oriented to person, place and time. Recent and remote memory are intact. Speech is normal. Language is fluent with no aphasia. Cranial Nerves CN II-XII grossly intact, except as otherwise noted. Motor Normal muscle bulk throughout. Normal muscle tone. The following abnormal movements were seen: Strength is 5/5 throughout all four extremities. He has left > right spasticity more so in the legs. . Gait Casual gait: Wide stance. Spastic gait. Assessment and Plan: Assessment Mr. 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 The following are the current problems noted and addressed during this visit: Overactive bladder (primary encounter diagnosis) Muscle spasticity Hsp (hereditary spastic paraplegia) (formerly [facility]) Plan 06/12/2023 Visit: HSP - Medications renewed today. Overactive bladder - Continue Vesicare Updated Movement Disorders Medication Schedule: Medications AM Noon PM Baclofen 10 mg 2 2 2 Gabapentin 300 mg 1 Vesicare 10 mg 1 Thank you for allowing me to be part of the clinical care of this patient! I look forward to continued participation in the patient?s care with you. Please do not hesitate to call with any questions. Sincerely, MD Yoandy Parra Benjamin Lee, MD 06/12/2023 4:58 PM Signed It was a pleasure to see you today. We addressed the following diagnoses: Overactive bladder (primary encounter diagnosis) Muscle spasticity Hsp (hereditary spastic paraplegia) (formerly [facility]) My recommendations are as follows: 06/12/2023 Visit: HSP - Medications renewed today. Overactive bladder - Continue Vesicare Movement Disorders Medication Schedule: Medications AM Noon PM Baclofen 10 mg 2 2 2 Gabapentin 300 mg 1 Vesicare 10 mg 1 Return at or around: 12/12/23 If there are any concerns before your next visit, please call or you can send a message through [email or web address]. You can also now schedule and select appointments through [email or web address]. Mickey Schmidt MD Referring Provider: MICKEY SCHMIDT [[id number]] Allergies As of Date: 06/12/2023 (No Known Allergies) Date Reviewed: 06/10/2023 Reviewed by: Erika Win MA - Fully Assessed Reason for Visit: HSP (hereditary spstic paraplegia) [Other] Primary Visit Diagnosis:Overactive bladder [N32.81] Other Visit Diagnoses:Muscle spasticity [M62.838] HSP (hereditary spastic paraplegi (more content not included)... Normal [facility] CNOVon 05-23-2023 CNOV Office Visit (NRMDN) GAURANG TORRES ([id number]) 1960 M Date Time Provider Department 05/23/23 8:00 AM REJI FARR During your visit today, we recorded the following information about you: Pulse Respiration Blood pressure 103/minute 16/minute 112/70 Reji Farr MD 05/23/2023 8:55 AM Signed [facility] Date: May 23, 2023 Name: Gaurang Torres SUBJECTIVE: Subjective history Botox helpful. Big toes are still going up. Otherwise he is happy. 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) Other: HSP Date of diagnosis: >10 years Other treatments that have been tried and failed: Medications Other muscle relaxants braces Date of first neurotoxin treatment: 09/05/2021 Type of neurotoxin given: OnabotulinumtoxinA (Botox) Frequency of current neurotoxin treatment: 90 days Estimated frequency and duration of treatment: continue with current injection interval; will reassess after 1 year Last Injection Notes Date of last Injection: 02/21/2023 Type of neurotoxin: OnabotulinumtoxinA (Botox) Total amount injected: 500 units Degree of effectiveness of last injection:65% Duration of effect: 12 week(s) Side effects related to last injection: None Current pain symptoms: No Current functional limitations: severe Last neurotoxin regimen: Med left right midline Gastrocnemius Lateral 55 30 Medial 100 60 Soleus 45 30 Tibialis posterior 100 60 EHL 10 10 Total: 500 Questionnaires: In addition, the following areas that may be affected by abnormal involuntary movements were evaluated: Daily activities Difficulties with eatin (none) Difficulties in dressin (none) Difficulties with hygiene activities: 0 (none) Difficulties with handwritin (none) Difficulties with doing hobbies and other activities: Yes (slight) Difficulties turning in bed: 0 (none) Difficulties getting out of bed, car or chair: Yes (slight) Tremors/Gait/Balance Shaking or tremors: 0 (none) Walking and balance problems: Yes (moderate) Number of falls in the Last Month: Gait freezing: Autonomic/Pain Lightheadeness on standin (none) Urinary problems: Constipation problems: 0 (none) Pain and other sensations: 0 (none) Speech/Swallowing Speech problems: 0 (none) Droolin (none) Chewing and swallowing problems: 0 (none) Sleep/Fatigue Sleep problems: Yes (slight) Daytime sleepiness: Yes (mild) Fatigue: Mood/Behavior Depression: PHQ-9 Score: 1 usually representing no significant (0-4) depression. Anxiety: Finally, the following table shows the patient's overall global physical and mental health using the PROMIS scale: PROMIS-10 Flowsheet Row Office Visit from 05/23/2023 in Neurology Office Visit from 02/21/2023 in Neurology Global Physical Health T Score 50.8 50.8 Global Mental Health T Score 48.3 48.3 0-10 Standard Pain Scale 5 5 *PROMIS-10 scoring scale: mean = 50, over 50 is above average, under 50 is below average Allergies: ALLERGIES No Known Allergies Current Medications: Current Outpatient Medications Medication Sig gabapentin (NEURONTIN) 300 mg capsule Take 1 capsule by mouth daily at bedtime. solifenacin (VESICARE) 10 mg tablet Take 1 tablet by mouth once daily. baclofen (LIORESAL) 10 mg tablet Take 2 tablets by mouth three times daily. tamsulosin (FLOMAX) 0.4 mg 0.4 mg once daily. Cyanocobalamin 1,000 mcg TbER TAKE 1 TABLET BY MOUTH EVERY DAY lactulose (DUPHALAC, CONSTULOSE) 10 gram/15 mL solution TAKE 30 ML EVERY OTHER DAY (Patient taking differently: TAKE 30 ML EVERY DAY) Rhqjn-9-XMH-EPA-Fish Oil 1,000 mg (120 mg-180 mg) cap Take 1,000 mg by mouth once daily. Cholecalciferol, Vitamin D3, 25 mcg (1,000 unit) cap Take 1,000 Units by mouth once daily. Current Facility-Administered Medications Medication Dose Route Frequency onabotulinum toxin type A 600 Units injection (BOTOX) 600 Units INTRAMUSCULAR ONCE OBJECTIVE: BP 112/70 (BP Site: Left Arm, BP Position: Sitting, BP Cuff Size: Regular Adult) Pulse 103 Resp 16 SpO2 98% Other notable exam findings: excess plantarflexion, foot inversion bilateral lower extremities, mildly worse on right. Great toe extension L>>R. Spastic gait ASSESSMENT AND PLAN: Mr. 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 Botox is working well. Increased EHL to address big toe extension. After obtaining informed consent, neurotoxin injections were carried out as outlined below. Current Injection Note Type of neurotoxin: OnabotulinumtoxinA (Botox) Total amount drawn: 600 units Total amount injected: 520 units Total amount wasted: 80 units Dilution: 1 cc NSS/1 (more content not included)... Normal [facility] Surgical Tissue Examon 04-02 Surgical Tissue Exam Test performed at [facility] [address] [place] [address] NAME: GAURANG TORRES REQUESTING: EVERETT MARK M.D. FINAL DIAGNOSIS: A) GASTRIC BIOPSY (ANTRUM) - MILD CHRONIC GASTRITIS. COMMENT: Due to the limited degree of inflammation a Helicobacter pylori immunostain is not indicated. B) GASTRIC BIOPSY (BODY) - MILD CHRONIC GASTRITIS. C) BIOPSY OF GASTROESOPHAGEAL JUNCTION - FRAGMENTS OF SQUAMOUS MUCOSA WITH NO INFLAMMATORY PROCESS OR OTHER DIAGNOSTIC ABNORMALITY IDENTIFIED. OPERATIVE PROCEDURE: Esophagogastroduodenoscopy CLINICAL INFORMATION: Melena [K92.1], Rectal bleeding [K62.5], History of colonic polyps [Z86.010], Family history of colon cancer [Z80.0], Sigmoidoscopy exam [Z00.8] GROSS DESCRIPTION: A) Antrum, test for H. pylori Received in formalin labeled antrum are two segments of madden-white soft tissue aggregating to 1.0 x 0.2 x 0.1 cm. The specimen is totally submitted in formalin in one cassette. Levels x 2. B) Gastric body Received in formalin labeled gastric body are two segments of madden-brown soft tissue aggregating to 0.6 x 0.2 x 0.1 cm. The specimen is totally submitted in one cassette. Levels x 2. C) GE junction Received in formalin labeled gastroesophageal junction is an irregular-shaped segment of white soft tissue measuring 0.6 x 0.2 x 0.1 cm. The specimen is totally submitted in one cassette. Levels x 2. [facility]:mary JUAREZ M.D. (Electronic signature on file) Signed out: 04/06/2019 14:27 PRINTED: 04/06/2019 Page 1 of [address] [facility] Comment on above: Performed By: #### S URG #### [facility] [address] [place] [address] Fecal Occult Bloodon 019 Fecal Occult Blood Positive Abnormal Negative [facility] Comment on above: Performed By: #### L OCCU #### [facility] [address] [place] [address] Hepatitis C Antibodyon 09-30 Hepatitis C Ab Negative Normal Negative [facility] Comment on above: Performed By: #### H CVAB #### [facility] [address] [place] [address] Total 25-OH Vitamin Don 09-05 Total 25-OH Vitamin D 40.8 ng/mL Normal 30.0-100.[address] [facility] Comment on above: Performed By: #### 2 5VD1 #### [facility] [address] [place] [address] Comprehensive Panelon 2018 ALP [Catalytic activity/Vol] 38 U/L Low 46-[address] [facility] Comment on above: Performed By: #### P 14 #### [facility] [address] [place] [address] Bilirubin [Mass/Vol] 1.1 mg/dL High 0.2-1.[address] [facility] Comment on above: Performed By: #### P 14 #### [facility] [address] [place] [address] Protein [Mass/Vol] 7.9 g/dL Normal 6.4-8.[address] [facility] Comment on above: Performed By: #### P 14 #### [facility] [address] [place] [address] ALT [Catalytic activity/Vol] 31 U/L Normal 12-[address] [facility] Comment on above: Performed By: #### P 14 #### [facility] [address] [place] [address] Creatinine [Mass/Vol] 0.92 mg/dL Normal 0.67-1.[address] [facility] Comment on above: Performed By: #### P 14 #### [facility] [address] [place], [place] [address] AST [Catalytic activity/Vol] 21 U/L Normal 9-[address] [facility] Comment on above: Performed By: #### P 14 #### [facility] [address] [place], [place] [address] Albumin [Mass/Vol] 3.9 g/dL Normal 3.4-5.[address] [facility] Comment on above: Performed By: #### P 14 #### [facility] [address] [place], [place] [address] Anion gap [Moles/Vol] 13 mmol/L Normal 8-[address] [facility] Comment on above: Performed By: #### P 14 #### [facility] [address] [place], [place] [address] Calcium [Mass/Vol] 9.0 mg/dL Normal 8.5-10.[address] [facility] Comment on above: Performed By: #### P 14 #### [facility] [address] [place], [place] [address] CO2 [Moles/Vol] 25 mmol/L Normal 21-[address] [facility] Comment on above: Performed By: #### P 14 #### [facility] [address] [place], [place] [address] Glucose [Mass/Vol] 92 mg/dL Normal 70-[address] [facility] Comment on above: Performed By: #### P 14 #### [facility] [address], [place] [address] Urea nitrogen [Mass/Vol] 18 mg/dL Normal 7-[address] [facility] Comment on above: Performed By: #### P 14 #### [facility] [address] [place], [place] [address] Chloride [Moles/Vol] 106 mmol/L Normal 98-[address] [facility] Comment on above: Performed By: #### P 14 #### [facility] [address] [place], [place] [address] Potassium [Moles/Vol] 4.3 mmol/L Normal 3.5-5.[address] [facility] Comment on above: Performed By: #### P 14 #### [facility] [address] [place], [place] [address] Sodium [Moles/Vol] 140 mmol/L Normal 136-[address] [facility] Comment on above: Performed By: #### P 14 #### [facility] [address] [place] [address] Hemogramon 09-29-2018 Erythrocyte distribution width (RBC) [Ratio] 13.8 % Normal 11.5-15.[address] [facility] Comment on above: Performed By: #### L CBC #### [place] [address] Hematocrit (Bld) [Volume fraction] 48.4 % Normal 42.0-52.[address] [facility] Comment on above: Performed By: #### L CBC #### [place] [address] Hemoglobin (Bld) [Mass/Vol] 16.3 g/dL Normal 14.0-18.[address] [facility] Comment on above: Performed By: #### L CBC #### [place] [address] MCH (RBC) [Entitic mass] 28.0 pg Normal 27.0-31.[address] [facility] Comment on above: Performed By: #### L CBC #### [place] [address] MCHC (RBC) [Mass/Vol] 33.7 % Normal 32.0-36.[address] [facility] Comment on above: Performed By: #### L CBC #### [place] [address] MCV (RBC) [Entitic vol] 83.0 fL Normal 80.0-94.[address] [facility] Comment on above: Performed By: #### L CBC #### [place] [address] Platelet mean volume (Bld) [Entitic vol] 11.0 fL High 7.1-10.[address] [facility] Comment on above: Performed By: #### L CBC #### [place] [address] Platelets (Bld) [#/Vol] 192 thou/cmm Normal 150-[address] [facility] Comment on above: Performed By: #### L CBC #### [facility] [address] [place] [address] RBC (Bld) [#/Vol] 5.83 mil/cmm Normal 4.60-6.[address] [facility] Comment on above: Performed By: #### L CBC #### [facility] [address] [id number] WBC (Bld) [#/Vol] 7.2 thou/cmm Normal 4.8-10.[address] [facility] Comment on above: Performed By: #### L CBC #### [place] [address] Lipid Profileon 09-29-2018 Cholesterol [Mass/Vol] 206 mg/dL High 0-[address] [facility] Comment on above: Performed By: #### L LIPD #### [place] [address] Cholesterol in HDL [Mass/Vol] 48 mg/dL Normal >[address] [facility] Comment on above: Performed By: #### L LIPD #### [facility] [address] [id number] Cholesterol in LDL [Mass/Vol] 143 mg/dL Normal 0-[address] [facility] Comment on above: Performed By: #### L LIPD #### [place] [address] Cholesterol.total/C holesterol in HDL [Mass ratio] 4.3 {ratio} Normal 2.1-7.[address] [facility] Comment on above: Performed By: #### L LIPD #### [place] [address] Risk Factor 4.[address] [facility] Comment on above: Result Comment: Card iac Risk Factor The CHD risk factor is based on the total Chol/HDL ratio. Other factors affect CHD risk such as hypertension, smoking, diabetes, severe obesity and premature CHD. Cardiac Risk Total Chol/HDL ratio Men Women 1/2 avg risk 3.4-4.9 3.3-6.3 Avg risk 5.0-9.5 6.4-7.0 2x avg risk 9.6-23.3 7.1-10.9 3x avg risk >23.4 >11.0 Performed By: #### L LIPD #### [place] [address] Triglyceride Blood 77 mg/dL Normal 0-[address] [facility] Comment on above: Performed By: #### L LIPD #### [place] [address] MDRD GFRon 09-29-2018 GFR/1.73 sq M predicted among non-blacks MDRD (S/P/Bld) [Vol rate/Area] mL/min/{1.73_m2} Normal >60mL/min/1. 73m2 [facility] Comment on above: Result Comment: If t he patient is , multiply the result by 1.210. Performed By: #### G FR #### [place] [address] PSA Screenon 09-29-2018 PSA Screen 1.1 ng/mL Normal 0.0-3.[address] [facility] Comment on above: Performed By: #### L PSAS #### [place] [id number] Vitamin B12on 09-29-2018 Cobalamin (Vitamin B12) [Mass/Vol] 517 pg/mL Normal 193-[address] [facility] Comment on above: Performed By: #### B 12 #### [address] [address] Vital Signs Date Time Vital Sign Value Performing Clinician Airam griffin 01-22-2024 16:19-0400 Body height 188 cm Mickey Schmidt MD Work Phone: [facility] 01-22-2024 16:19-0400 Body mass index (BMI) [Ratio] 27.54 kg/m2 Mickey Schmidt MD Work Phone: [facility] 01-22-2024 16:19-0400 Body weight 97.3 kg Mickey Schmidt MD Work Phone: [facility] 01-22-2024 16:19-0400 Diastolic blood pressure 75 mm[Hg] Mickey Schmidt MD Work Phone: [facility] 01-22-2024 16:19-0400 Heart rate 84 /min Mickey Schmidt MD Work Phone: [facility] 01-22-2024 16:19-0400 SaO2% (BldA) [Mass fraction] 97 % Mickey Schmidt MD Work Phone: [facility] 01-22-2024 16:19-0400 Systolic blood pressure 116 mm[Hg] Mickey Schmidt MD Work Phone: [facility] 06-12-2023 16:24-0500 Body height 188 cm Mickey Schmidt MD Work Phone: [facility] 06-12-2023 16:24-0500 Body weight 88.45 kg Mickey Schmidt MD Work Phone: [facility] 06-12-2023 16:24-0500 Diastolic blood pressure 86 mm[Hg] Mickey Schmidt MD Work Phone: [facility] 06-12-2023 16:24-0500 Heart rate 86 /min Mickey Schmidt MD Work Phone: [facility] 06-12-2023 16:24-0500 SaO2% (BldA) [Mass fraction] 97 % Mickey Schmidt MD Work Phone: [facility] 06-12-2023 16:24-0500 Systolic blood pressure 128 mm[Hg] Mickey Schmidt MD Work Phone: [facility] 05-23-2023 07:38-0500 Diastolic blood pressure 70 mm[Hg] Reji Farr MD Work Phone: [facility] 05-23-2023 07:38-0500 Heart rate 103 /min Reji Farr MD Work Phone: [facility] 05-23-2023 07:38-0500 Respiratory rate 16 /min Reji Farr MD Work Phone: [facility] 05-23-2023 07:38-0500 SaO2% (BldA) [Mass fraction] 98 % Reji Farr MD Work Phone: [facility] 05-23-2023 07:38-0500 Systolic blood pressure 112 mm[Hg] Reji Farr MD Work Phone: [facility] 02-21-2023 07:44-0400 Body height 188 cm Reji Farr MD Work Phone: [facility] 02-21-2023 07:44-0400 Body weight 89.5 kg Reji Farr MD Work Phone: [facility] 02-21-2023 07:44-0400 Diastolic blood pressure 71 mm[Hg] Reji Farr MD Work Phone: [facility] 02-21-2023 07:44-0400 Heart rate 104 /min Reji Farr MD Work Phone: [facility] 02-21-2023 07:44-0400 SaO2% (BldA) [Mass fraction] 98 % Reji Farr MD Work Phone: [facility] 02-21-2023 07:44-0400 Systolic blood pressure 123 mm[Hg] Reji Farr MD Work Phone: [facility] 12-05-2022 16:28-0400 Body height 188 cm Mickey Schmidt MD Work Phone: [facility] 12-05-2022 16:28-0400 Body weight 91.22 kg Mickey Schmidt MD Work Phone: [facility] 12-05-2022 16:28-0400 Diastolic blood pressure 73 mm[Hg] Mickey Schmidt MD Work Phone: [facility] 12-05-2022 16:28-0400 Heart rate 93 /min Mickey Schmidt MD Work Phone: [facility] 12-05-2022 16:28-0400 SaO2% (BldA) [Mass fraction] 97 % Mickey Schmidt MD Work Phone: [facility] 12-05-2022 16:28-0400 Systolic blood pressure 126 mm[Hg] Mickey Schmidt MD Work Phone: [facility] 11-08-2022 07:39-0400 Body height 188 cm Reji Farr MD Work Phone: [facility] 11-08-2022 07:39-0400 Body weight 92.63 kg Reji Farr MD Work Phone: [facility] 11-08-2022 07:39-0400 Diastolic blood pressure 89 mm[Hg] Reji Farr MD Work Phone: [facility] 11-08-2022 07:39-0400 Heart rate 104 /min Reji Farr MD Work Phone: [facility] 11-08-2022 07:39-0400 SaO2% (BldA) [Mass fraction] 99 % Reji Farr MD Work Phone: [facility] 11-08-2022 07:39-0400 Systolic blood pressure 145 mm[Hg] Reji Farr MD Work Phone: [facility] 10-10-2022 12:20-0400 Body height 188 cm Reji Farr MD Work Phone: [facility] 10-10-2022 12:20-0400 Body weight 92.99 kg Reji Farr MD Work Phone: [facility] 10-10-2022 12:20-0400 Diastolic blood pressure 85 mm[Hg] Reji Farr MD Work Phone: [facility] 10-10-2022 12:20-0400 Heart rate 71 /min Reji Farr MD Work Phone: [facility] 10-10-2022 12:20-0400 SaO2% (BldA) [Mass fraction] 96 % Reji Farr MD Work Phone: [facility] 10-10-2022 12:20-0400 Systolic blood pressure 118 mm[Hg] Reji Farr MD Work Phone: [facility] 06-25-2022 07:46-0500 Body height 188 cm Reji Farr MD Work Phone: [facility] 06-25-2022 07:46-0500 Body weight 90.27 kg Reji Farr MD Work Phone: [facility] 06-25-2022 07:46-0500 Diastolic blood pressure 88 mm[Hg] Reji Farr MD Work Phone: [facility] 06-25-2022 07:46-0500 Heart rate 112 /min Reji Farr MD Work Phone: [facility] 06-25-2022 07:46-0500 SaO2% (BldA) [Mass fraction] 98 % Reji Farr MD Work Phone: [facility] 06-25-2022 07:46-0500 Systolic blood pressure 142 mm[Hg] Reji Farr MD Work Phone: [facility] 05-27-2022 09:21-0500 Body height 188 cm Everett Mark MD Work Phone: [facility] 05-27-2022 09:21-0500 Body weight 88.45 kg Everett Mark MD Work Phone: [facility] 03-21-2022 12:24-0400 Body height 188 cm Reji Farr MD Work Phone: [facility] 03-21-2022 12:24-0400 Body weight 88.45 kg Reji Farr MD Work Phone: [facility] 03-21-2022 12:24-0400 Diastolic blood pressure 83 mm[Hg] Reji Farr MD Work Phone: [facility] 09-15-2022 12:24-0400 Heart rate 75 /min Reji Farr MD Work Phone: [facility] 03-21-2022 12:24-0400 Respiratory rate 18 /min Reji Farr MD Work Phone: [facility] 03-21-2022 12:24-0400 SaO2% (BldA) [Mass fraction] 97 % Reji Farr MD Work Phone: [facility] 03-21-2022 12:24-0400 Systolic blood pressure 113 mm[Hg] Reji Farr MD Work Phone: [facility] 12-13-2021 15:33-0400 Body height 188 cm Reji Farr MD Work Phone: [facility] 12-13-2021 15:33-0400 Body weight 88.63 kg Reji Farr MD Work Phone: [facility] 12-13-2021 15:33-0400 Diastolic blood pressure 79 mm[Hg] Reji Farr MD Work Phone: [facility] 12-13-2021 15:33-0400 Heart rate 84 /min Reji Farr MD Work Phone: [facility] 12-13-2021 15:33-0400 SaO2% (BldA) [Mass fraction] 97 % Reji Farr MD Work Phone: [facility] 12-13-2021 15:33-0400 Systolic blood pressure 125 mm[Hg] Reji Farr MD Work Phone: [facility] Encounters Encounter Date Encounter Type Care Provider Facility Start: 03-10-2024 ambulatory VERNELL ATKINSON Facilit y:[facility] Start: 03-10-2024 End: 03-10-2024 Subsequent hospital visit by physician Card/Pulm Lab [facility] Comment on above: Localized edema [R60 .0] Start: 02-27-2024 End: 02-27-2024 ambulatory VERNELL ATKINSON Facility:[facility] Start: 01-28-2024 End: 01-28-2024 ambulatory MICKEY SCHMIDT Facility:[facility] Start: 01-22-2024 End: 01-22-2024 ambulatory MICKEY SCHMIDT Facility:[facility] Start: 01-22-2024 End: 01-22-2024 Office outpatient visit 25 minutes Mickey Schmidt MD Work Phone: Neurology Comment on above: 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[facility]) (Primary Dx); Bilateral leg edema; Overactive bladder; Muscle spasticity Start: 11-13-2023 End: 11-13-2023 ambulatory CHRIS WISE Facility:[facility] Start: 10-20-2023 End: 10-20-2023 ambulatory ASAADELE GODINEZ Facility:[facility] Start: 10-06-2023 End: 10-06-2023 ambulatory ASA G HERBERT Facility:[facility] Start: 09-29-2023 End: 09-29-2023 ambulatory ASA G HERBERT Facility:[facility] Start: 07-08-2023 End: 07-08-2023 ambulatory CHRIS WISE Facility:[facility] Start: 06-17-2023 End: 06-17-[facility] Start: 06-17-2023 ambulatory ASA Wil [facility] Start: 06-12-2023 End: 06-12-2023 ambulatory MICKEY SCHMIDT Facility:[facility] Start: 06-12-2023 End: 06-12-2023 Office outpatient visit 15 minutes Mickey Schmidt MD Work Phone: Neurology Comment on above: Overactive bladder ( Primary Dx); Muscle spasticity; HSP (hereditary spastic paraplegia) ([facility]) Start: 05-23-2023 End: 05-23-2023 ambulatory REJI FARR Facility:[facility] Start: 05-23-2023 End: 05-23-2023 Patient encounter procedure Reji Farr MD Work Phone: Neurology Comment on above: Muscle spasticity (P rimary Dx); Hereditary spastic paraparesis (HCC) Start: 02-21-2023 End: 02-21-2023 Patient encounter procedure Reji Farr MD Work Phone: Neurology Comment on above: Muscle spasticity (P rimary Dx); Hereditary spastic paraparesis (HCC) Start: 12-05-2022 End: 12-06-2022 Office outpatient visit 15 minutes Mickey Schmidt MD Work Phone: Neurology Comment on above: 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HCC) (Primary Dx); Spasticity Start: 11-08-2022 End: 11-08-2022 Patient encounter procedure Reji Farr MD Work Phone: Neurology Comment on above: Dystonia of extremit y (Primary Dx); Hereditary spastic paraparesis (HCC) Start: 11-07-2022 Telephone encounter Reji argueta MD Work Phone: Neurology Comment on above: Pharmacy Customer Care Specialist - O ther Insurance Authorizat ion Start: 10-10-2022 End: 10-10-2022 Patient encounter procedure Reji Farr MD Work Phone: Neurology Comment on above: Hereditary spastic p araparesis (HCC) (Primary Dx) Start: 06-25-2022 End: 06-25-2022 Patient encounter procedure Reji Farr MD Work Phone: Neurology Comment on above: Hereditary spastic p araparesis (HCC) (Primary Dx); Muscle spasticity Family history of co gisela cancer (Primary Dx); Encounter for screening colonoscopy Start: 05-27-2022 End: 05-27-2022 Orders Only Everett Mark MD Work Phone: [facility] Comment on above: Encounter for screen ing colonoscopy (Primary Dx) Encounter for screen ing colonoscopy (Primary Dx); Family history of colon cancer Start: 05-01-2022 Refill Mickey rivas MD Work Phone: [facility] Comment on above: Refill Request Start: 03-21-2022 End: 03-21-2022 Patient encounter procedure Reji Farr MD Work Phone: Neurology Comment on above: Muscle spasticity (P rimary Dx); Hereditary spastic paraparesis (HCC) Start: 12-26-2021 Telephone encounter Mickey Schmidt MD Work Phone: Neurology Comment on above: Disability forms Start: 12-13-2021 End: 12-13-2021 Patient encounter procedure Reji Farr MD Work Phone: Neurology Comment on above: Muscle spasticity (P rimary Dx); Hereditary spastic paraparesis (HCC) Start: 10-17-2021 Telephone encounter Mickey Schmidt MD Work Phone: Neurology Comment on above: Office notes Start: 09-28-2021 Telephone encounter Asa lyon MD Work Phone: [facility] Comment on above: Patient Question Start: 09-24-2021 Telephone encounter Mickey Schmidt MD Work Phone: [facility] Comment on above: Medication Question/ Solifenacin Procedures Date Procedure Procedure Detail Performing Clinician Start: 03-10-2024 Echo tthrc r-t 2d w/wom-mode compl spec&colr d [facility] Provider Start: 07-30-2022 Colonoscopy Reji argueta MD Work Phone: Start: 03-16-2022 Adult depression scr eening assessment Reji Farr MD Work Phone: Start: 11-22-2021 Adult depression scr eening assessment Reji Farr MD Work Phone: Start: 07-18-2021 Adult depression scr eening assessment Mickey Schmidt MD Work Phone: Start: 04-24-2021 Lipid 1996 panel - S vanita or Plasma Reji Farr MD Work Phone: Start: 04-30-2019 Colonoscopy Mickey rivas MD Work Phone: Start: 2017 Follow-up visit Plan of Treatment Date Care Activity Detail Author Start: 11-12-2028 Prostate specific antigen measurement Prostate Cancer Screening Discussion [facility] Start: 09-29-2028 Urine microalbumin profile [facility] Start: 07-30-2027 Colonoscopy COLONOSCOPY [facility] Start: 07-30-2027 COLORECTAL CANCER SCREENING COLORECTAL CANCER SCREENING [facility] Start: 07-30-2027 Screening for malign ant neoplasm of colon [facility] Start: 02-26-2027 Diabetes Screening Diabetes Screenin g [facility] Start: 11-29-2026 PROSTATE CANCER SCREENING DISCUSSION PROSTATE CANCER SCREENING DISCUSSION [facility] Start: 07-08-2026 Diabetes Screening Diabetes Screenin g [facility] Start: 04-24-2026 Lipid 1996 panel - S vanita or Plasma Lipid Screening [facility] Start: 04-24-2026 Lipid panel Lipid Screening [facility] Start: 04-24-2026 LIPID SCREEN LIPID SCREEN [facility] Start: 08-05-2024 End: 08-05-2024 Patient encounter procedure 08/05/2024 3:30 PM EST Office Visit Neurology [address] [id number] Mickey Schmidt MD [address] [place] [address] 6 month follow up Neurology Comment on above: 6 month follow up Start: 04-24-2024 DIABETES SCREEN DIABETES SCREEN [facility] Start: 04-24-2024 Diabetes Screening Diabetes Screenin [facility] Start: 03-07-2024 Influenza vaccination Influenza Vacc ine (#1) [facility] Start: 01-28-2024 End: 01-28-2024 [facility]ARDIO PULMONARY TEST[facility] Comment on above: Bilateral leg edema [R60.0] Start: 01-22-2024 End: 04-22-2024 Comprehensive metabolic 2000 panel - Serum or Plasma COMPREHENSIVE METABOLIC PANEL Lab Routine Bilateral leg edema Expected: 01/22/2024, Expires: 04/22/2024 [facility] Comment on above: Expected: 01/22/2024 , Expires: 04/22/2024 Start: 09-30-2023 PROSTATE CANCER SCREENING DISCUSSION PROSTATE CANCER SCREENING DISCUSSION [facility] Start: 03-16-2023 Adult depression screening assessment DEPRESSION SCREENING [facility] Start: 03-07-2023 Covid-19 Vaccine ( season) Covid-19 Vaccine () [facility] Start: 03-07-2023 Influenza vaccination INFLUENZA (#1) [facility] Start: 11-22-2022 Adult depression screening assessment DEPRESSION SCREENING [facility] Start: 07-30-2022 End: 06-25-2023 Screening colonoscopy COLONOSCOPY SCREENING Endoscopy Routine Family history of colon cancer Encounter for screening colonoscopy Expected: 07/30/2022, Expires: 06/25/2023 [facility] Work Phone: Comment on above: Expected: 07/30/2022 , Expires: 06/25/2023 Start: 07-18-2022 Adult depression screening assessment DEPRESSION SCREENING [facility] Start: 07-07-2022 DEPRESSION ASSESSMENT DEPRESSION ASS ESSMENT [facility] Start: 04-30-2022 Colonoscopy COLONOSCOPY [facility] Start: 04-30-2022 COLORECTAL CANCER SCREENING COLORECTAL CANCER SCREENING [facility] Start: 03-07-2022 Influenza vaccination INFLUENZA (#1) [facility] Start: 02-02-2022 COVID-19 VACCINE (5 - Booster for Moderna series) COVID-19 VACCINE (5 - Booster for Moderna series) [facility] Start: 2021 RSV Vaccine (1 - 1-d ose 60+ series) RSV Vaccine (1 - 1-dose 60+ series) [facility] Start: 07-07-2021 DEPRESSION ASSESSMENT DEPRESSION ASS ESSMENT [facility] Start: 10-02-2019 FECAL OCCULT BLOOD FECAL OCCULT BLOO D [facility] Start: 10-02-2019 Screening for malign ant neoplasm of colon Fecal Occult Blood [facility] Start: 2011 SHINGRIX VACCINE (1 of 2) SHINGRIX VACCINE (1 of 2) [facility] Start: 2006 COLOGUARD (FIT-DNA) COLOGUARD (FIT-D NA) [facility] Start: [address] COLONOGRAPHY [facility] Start: 2006 Screening for malign ant neoplasm of colon [facility] Start: 2006 SIGMOIDOSCOPY SIGMOIDOSCOPY [facility] Start: 1979 Anxiety Screening Anxiety Screening [facility] Start: 1979 Depression Screening Depression Scre ening [facility] End: 01-21-2025 ECG COMPLETE ECG COMPLETE ECG Routine Bilateral leg edema 1 Occurrences starting 01/22/2024 until 01/21/2025 [facility] Work Phone: Comment on above: 1 Occurrences starti ng 01/22/2024 until 01/21/2025 H&P for surgery H&P FOR SURGERY Procedures Routine Encounter for screening colonoscopy Ordered: 05/27/2022 [facility] Work Phone: Comment on above: Ordered: 05/27/2022 H&P for surgery H&P FOR SURGERY Procedures Routine Family history of colon cancer Encounter for screening colonoscopy Ordered: 06/25/2022 [facility] Work Phone: Comment on above: Ordered: 06/25/2022 End: 05-27-2023 Screening colonoscopy COLONOSCOPY SCREENING Endoscopy Routine Encounter for screening colonoscopy 1 Occurrences starting 05/27/2022 until 05/27/2023 [facility] Work Phone: Comment on above: 1 Occurrences starti ng 05/27/2022 until 05/27/2023 [facility] Immunizations Immunization Date Immunization Notes Care Provider Fa [facility] 04-23-2023 influenza virus vaccine, unspecified formulation Mickey Schmidt MD Work Phone: [facility] 04-24-2021 influenza, injectabl e, quadrivalent, contains preservative Mickey Schmidt MD Work Phone: [facility] 04-06-2020 influenza, seasonal, injectable Mickey Schmidt MD Work Phone: [facility] 04-06-2020 Seasonal, quadrivale nt, recombinant, injectable influenza vaccine, preservative free Mickey Schmidt MD Work Phone: [facility] 04-08-2019 influenza, injectabl e, quadrivalent, contains preservative Mickey Schmidt MD Work Phone: [facility] Work Phone: 09-29-2018 tetanus toxoid, redu nandini diphtheria toxoid, and acellular pertussis vaccine, adsorbed Mickey Schmidt MD Work Phone: [facility] 05-04-2018 influenza, injectabl e, quadrivalent, preservative free Mickey Schmidt MD Work Phone: [facility] 04-05-2017 influenza, injectabl e, quadrivalent, preservative free Mickey Schmidt MD Work Phone: [facility] 06-10-2016 influenza, seasonal, injectable Mickey Schmidt MD Work Phone: [facility] 04-12-2014 influenza, seasonal, injectable Mickey Schmidt MD Work Phone: [facility] Payers Date Payer Category Payer Medicare MEDICARE MEDICAR E A [id number] 2019-Present [phone] [address] [place] [address] Medicare [id number] 2019 Private Health Insurance [facility] CHOICE PLUS [id number] 2019-Present [phone] [address] [place] [address] O [id number] 2019 Private Health Insurance [id number] 2019 Unknown [id number] Social History Date Type Detail Facility Start: 06-18-2018 End: 02-21-2023 Tobacco smoking status NHIS Ex-smoker [facility] End: 07-09-1995 History of tobacco use Current smoker [facility] End: 07-09-1995 History of tobacco use Pipe Smoker [facility] Start: 06-18-2018 End: 02-21-2023 Tobacco use and exposure Smokeless tobacco non-user [facility] Start: 09-05-2021 End: 01-22-2024 Alcohol intake Current non-drinker of alcohol (finding) [facility] Start: 09-29-2018 End: 06-06-2022 Tobacco Comment 3 packs of pipes/day in past [facility] Start: 01-22-1961 Sex Assigned At Not on file [facility] Start: 08-06-2021 End: 06-06-2022 Exposure to SARS-CoV-2 (event) Not sure [facility] Start: 12-05-2022 End: 02-21-2023 History of Social function [facility] Start: 12-05-2022 End: 02-21-2023 Tobacco use panel [facility] Adult Depression Screening Assessment 0 [facility] Start: 10-16-2020 Gender identity Identifies as male gender (finding) [facility] Clinical Notes 09-27-2021 to 01-22-2024 Patient InstructionsMickey Schmidt MD - 01/22/2024 4:22 PM EDTPatient Mickey Zepeda MD - 06/12/2023 4:30 PM Reji Magaña MD - 05/23/2023 7:37 AM EST Note Date & Type Note Facility 01-22-2024 Instructions Mickey Schmidt MD - 01/22/2024 4:37 PM EDT It was a pleasure to see you today. We addressed the following diagnoses: Bilateral leg edema Overactive bladder Muscle spasticity Hsp (hereditary spastic paraplegia) ([facility]) (primary encounter diagnosis) My recommendations are as follows: 01/22/2024 Visit: HSP - Continue baclofen Leg swelling - I am ordering labs to check your kidneys and an EKG to look at your heart. It will be important to follow up with Dr. Godinez for this soon. Restless Legs Syndrome - Lets reduce the Neurontin to 200 mg at bedtime. If you do well can reduce further since you are doing well. Sometimes, Neurontin can cause leg swelling but usually in higher doses. Patient's perception of importance for healthcare provider to let them know of research trials for which they may be eligible? Somewhat important Movement Disorders Medication Schedule: Medications AM Noon PM Baclofen 10 mg 2 2 2 Gabapentin 200 mg 1 Vesicare 10 mg 1 Return in about 6 months (around 07/24/2024).Return at or around: 07/24/24 If there are any concerns before your next visit, please call or you can send a message through [email or web address]. You can also now schedule and select appointments through [email or web address]. Mickey Schmidt MD documented in this encounter [facility] 01-22-2024 Note HNO ID: [id number] Author: MICKEY SCHMIDT MD Service: ? Author Type: Physician Type: Progress Notes Filed: 01/22/2024 19:01 Note Text: [facility] - FOLLOW UP EVALUATION Asa Godinez MD [address] [address] Dear Asa Godinez MD: I had the pleasure of seeing Mr. Torres for follow-up today. As you know he is a 63 year old left-handed male with a history of history of hereditary spastic paraparesis since early adulthood . He is seen alone. Subjective Previous Plan-06/12/2023 Visit: HSP - Medications renewed today. Overactive bladder - Continue Vesicare Interval History: He is getting leg swelling for 3 months. No chest pain or shortness of breath. He remains on Neurontin 300 HS for RLS but this has been well controlled. Spasticity has been about the same but balance is worse. He is taking the Vesicare every other day. Movement Disorders Medications Schedule - as of the start of the visit: Medications AM Noon PM Baclofen 10 mg 2 2 2 Gabapentin 300 mg 1 Vesicare 10 mg 1 Other Movement Disorder Prior Therapies Gabapentin Baclofen Questionnaires: Mood/Behavior Depression: PHQ-9 Score: 2 usually representing no significant (0-4) depression. Anxiety: Finally, the following table shows the patient's overall global physical and mental health using the PROMIS scale: PROMIS-10 Flowsheet Row Office Visit from 01/22/2024 in Neurology Office Visit from 05/23/2023 in Neurology Global Physical Health T Score 47.7 50.8 Global Mental Health T Score 50.8 48.3 0-10 Standard Pain Scale 4 5 *PROMIS-10 scoring scale: mean = 50, over 50 is above average, under 50 is below average ALLERGIES No Known Allergies Current Outpatient Medications Medication Sig solifenacin (VESICARE) 10 mg tablet Take 1 tablet by mouth once daily. gabapentin (NEURONTIN) 300 mg capsule Take 1 capsule by mouth daily at bedtime. baclofen 10 mg tablet Take 2 tablets by mouth three times a day. tamsulosin (FLOMAX) 0.4 mg 0.4 mg once daily. Cyanocobalamin 1,000 mcg TbER TAKE 1 TABLET BY MOUTH EVERY DAY lactulose (DUPHALAC, CONSTULOSE) 10 gram/15 mL solution TAKE 30 ML EVERY OTHER DAY (Patient taking differently: TAKE 30 ML EVERY DAY) Zllxg-9-DRR-EPA-Fish Oil 1,000 mg (120 mg-180 mg) cap Take 1,000 mg by mouth once daily. Cholecalciferol, Vitamin D3, 25 mcg (1,000 unit) cap Take 1,000 Units by mouth once daily. No current facility-administered medications for this visit. Objective Vital Signs: BP 116/75 (BP Site: Left Arm, BP Position: Sitting, BP Cuff Size: Regular Adult) Pulse 84 Ht 188 cm (6' 2 ) Wt 97.3 kg (214 lb 8.1 oz) SpO2 97% BMI 27.54 kg/m? Orthostatic Vitals: None for this encounter Weight: 97.3 kg (214 lb 8.1 oz) Height: 188 cm (6' 2 ) No LMP for male patient. Body mass index is 27.54 kg/m?. General Physical Examination: Extremities: Pitting edema in both legs up above the knee bilaterally General Neurological Examination: Neurological Exam Mental Status Awake, alert and oriented to person, place and time. Recent and remote memory are intact. Speech is normal. Language is fluent with no aphasia. Cranial Nerves CN II-XII grossly intact, except as otherwise noted. Motor Normal muscle bulk throughout. Normal muscle tone. The following abnormal movements were seen: Strength is 5/5 throughout all four extremities. He has left > right spasticity more so in the legs. Gait Casual gait: Wide stance. Spastic gait. Assessment and Plan: Assessment Mr. Torres is a left-handed 63 year old year old male with hereditary spastic paraparesis. The following are the current problems noted and addressed during this visit: Bilateral leg edema Overactive bladder Muscle spasticity Hsp (hereditary spastic paraplegia) (formerly [facility]) (primary encounter diagnosis) Plan 01/22/2024 Visit: HSP - Continue baclofen Leg swelling - I am ordering labs to check your kidneys and an EKG to look at your heart. It will be important to follow up with Dr. Godinez for this soon. Restless Legs Syndrome - Lets reduce the Neurontin to 200 mg at bedtime. If you do well can reduce further since you are doing well. Sometimes, Neurontin can cause leg swelling but usually in higher doses. Patient's perception of importance for healthcare provider to let them know of research trials for which they may be eligible? Somewhat important Updated Movement Disorders Medication Schedule: Medications AM Noon PM Baclofen 10 mg 2 2 2 Gabapentin 300 mg 1 Vesicare 10 mg 1 Thank you for allowing me to be part of the clinical care of this patient! I look forward to continued participation in the patient?s care with you. Please do not hesitate to call with any questions. Sincerely, Mickey Schmidt MD [facility] 01-22-2024 History of Present illness Narrative [facility] - FOLLOW UP EVALUATION Asa Godinez MD [address] [facility] [place] [facility] [id number] Dear Asa Godinez MD: I had the pleasure of seeing Mr. Torres for follow-up today. As you know he is a 63 year old left-handed male with a history of history of hereditary spastic paraparesis since early adulthood . He is seen alone. Subjective Previous Plan-06/12/2023 Visit: HSP - Medications renewed today. Overactive bladder - Continue Vesicare Interval History: He is getting leg swelling for 3 months. No chest pain or shortness of breath. He remains on Neurontin 300 HS for RLS but this has been well controlled. Spasticity has been about the same but balance is worse. He is taking the Vesicare every other day. Movement Disorders Medications Schedule - as of the start of the visit: Medications AM Noon PM Baclofen 10 mg 2 2 2 Gabapentin 300 mg 1 Vesicare 10 mg 1 Other Movement Disorder Prior Therapies Gabapentin Baclofen Questionnaires: Mood/Behavior Depression: PHQ-9 Score: 2 usually representing no significant (0-4) depression. Anxiety: Finally, the following table shows the patient's overall global physical and mental health using the PROMIS scale: PROMIS-10 Flowsheet Row Office Visit from 01/22/2024 in Neurology Office Visit from 05/23/2023 in Neurology Global Physical Health T Score 47.7 50.8 Global Mental Health T Score 50.8 48.3 0-10 Standard Pain Scale 4 5 *PROMIS-10 scoring scale: mean = 50, over 50 is above average, under 50 is below average ALLERGIES No Known Allergies Current Outpatient Medications Medication Sig solifenacin (VESICARE) 10 mg tablet Take 1 tablet by mouth once daily. gabapentin (NEURONTIN) 300 mg capsule Take 1 capsule by mouth daily at bedtime. baclofen 10 mg tablet Take 2 tablets by mouth three times a day. tamsulosin (FLOMAX) 0.4 mg 0.4 mg once daily. Cyanocobalamin 1,000 mcg TbER TAKE 1 TABLET BY MOUTH EVERY DAY lactulose (DUPHALAC, CONSTULOSE) 10 gram/15 mL solution TAKE 30 ML EVERY OTHER DAY (Patient taking differently: TAKE 30 ML EVERY DAY) Ugfva-7-IJL-EPA-Fish Oil 1,000 mg (120 mg-180 mg) cap Take 1,000 mg by mouth once daily. Cholecalciferol, Vitamin D3, 25 mcg (1,000 unit) cap Take 1,000 Units by mouth once daily. No current facility-administered medications for this visit. Objective Vital Signs: BP 116/75 (BP Site: Left Arm, BP Position: Sitting, BP Cuff Size: Regular Adult) Pulse 84 Ht 188 cm (6' 2 ) Wt 97.3 kg (214 lb 8.1 oz) SpO2 97% BMI 27.54 kg/m Orthostatic Vitals: None for this encounter Weight: 97.3 kg (214 lb 8.1 oz) Height: 188 cm (6' 2 ) No LMP for male patient. Body mass index is 27.54 kg/m . General Physical Examination: Extremities: Pitting edema in both legs up above the knee bilaterally General Neurological Examination: Neurological Exam Mental Status Awake, alert and oriented to person, place and time. Recent and remote memory are intact. Speech is normal. Language is fluent with no aphasia. Cranial Nerves CN II-XII grossly intact, except as otherwise noted. Motor Normal muscle bulk throughout. Normal muscle tone. The following abnormal movements were seen: Strength is 5/5 throughout all four extremities. He has left > right spasticity more so in the legs. Gait Casual gait: Wide stance. Spastic gait. Assessment and Plan: Assessment Mr. Torres is a left-handed 63 year old year old male with hereditary spastic paraparesis. The following are the current problems noted and addressed during this visit: Bilateral leg edema Overactive bladder Muscle spasticity Hsp (hereditary spastic paraplegia) (formerly [facility]) (primary encounter diagnosis) Plan 01/22/2024 Visit: HSP - Continue baclofen Leg swelling - I am ordering labs to check your kidneys and an EKG to look at your heart. It will be important to follow up with Dr. Godinez for this soon. Restless Legs Syndrome - Lets reduce the Neurontin to 200 mg at bedtime. If you do well can reduce further since you are doing well. Sometimes, Neurontin can cause leg swelling but usually in higher doses. Patient's perception of importance for healthcare provider to let them know of research trials for which they may be eligible? Somewhat important Updated Movement Disorders Medication Schedule: Medications AM Noon PM Baclofen 10 mg 2 2 2 Gabapentin 300 mg 1 Vesicare 10 mg 1 Thank you for allowing me to be part of the clinical care of this patient! I look forward to continued participation in the patient s care with you. Please do not hesitate to call with any questions. Sincerely, Mickey Schmidt MD documented in this encounter [facility] 06-12-2023 Instructions Mickey Schmidt MD - 06/12/2023 4:58 PM EST It was a pleasure to see you today. We addressed the following diagnoses: Overactive bladder (primary encounter diagnosis) Muscle spasticity Hsp (hereditary spastic paraplegia) (formerly [facility]) My recommendations are as follows: 06/12/2023 Visit: HSP - Medications renewed today. Overactive bladder - Continue Vesicare Movement Disorders Medication Schedule: Medications AM Noon PM Baclofen 10 mg 2 2 2 Gabapentin 300 mg 1 Vesicare 10 mg 1 Return at or around: 12/12/23 If there are any concerns before your next visit, please call or you can send a message through [email or web address]. You can also now schedule and select appointments through [email or web address]. Mickey Schmidt MD documented in this encounter [facility] 06-12-2023 History of Present illness Narrative [facility] - FOLLOW UP EVALUATION Asa Godinez MD [address] [facility] [id number] Dear Asa Godinez MD: I had the pleasure of seeing Mr. Torres for follow-up today. As you know he is a 62 year old left-handed male with a history of history of hereditary spastic paraparesis since early adulthood . He is seen alone. Subjective Previous Plan-12/05/2022 Visit: HSP - Doing well, No changes today. Follow up 6-12 months. Interval History: He is doing OK. His left leg is giving more trouble with stairs. He doesn't fall. He uses a cane and walker, mostly the cane. At home he holds onto the wall. He has a grab bar by the shower. Movement Disorders Medications Schedule - as of the start of the visit: Medications AM Noon PM Baclofen 10 mg 2 2 2 Gabapentin 300 mg 1 Vesicare 10 mg 1 Other Movement Disorder Prior Therapies Gabapentin Baclofen ALLERGIES No Known Allergies Current Outpatient Medications Medication Sig tamsulosin (FLOMAX) 0.4 mg 0.4 mg once daily. Cyanocobalamin 1,000 mcg TbER TAKE 1 TABLET BY MOUTH EVERY DAY lactulose (DUPHALAC, CONSTULOSE) 10 gram/15 mL solution TAKE 30 ML EVERY OTHER DAY (Patient taking differently: TAKE 30 ML EVERY DAY) Exdgq-5-NYA-EPA-Fish Oil 1,000 mg (120 mg-180 mg) cap Take 1,000 mg by mouth once daily. Cholecalciferol, Vitamin D3, 25 mcg (1,000 unit) cap Take 1,000 Units by mouth once daily. solifenacin (VESICARE) 10 mg tablet Take 1 tablet by mouth once daily. gabapentin (NEURONTIN) 300 mg capsule Take 1 capsule by mouth daily at bedtime. baclofen 10 mg tablet Take 2 tablets by mouth three times a day. No current facility-administered medications for this visit. Objective Vital Signs: BP 128/86 (BP Site: Left Arm, BP Position: Sitting, BP Cuff Size: Regular Adult) Pulse 86 Ht 188 cm (6' 2 ) Wt 88.5 kg (195 lb) SpO2 97% BMI 25.04 kg/m Orthostatic Vitals: None for this encounter No LMP for male patient. Body mass index is 25.04 kg/m . General Physical Examination: General Exam General Neurological Examination: Neurological Exam Mental Status Awake, alert and oriented to person, place and time. Recent and remote memory are intact. Speech is normal. Language is fluent with no aphasia. Cranial Nerves CN II-XII grossly intact, except as otherwise noted. Motor Normal muscle bulk throughout. Normal muscle tone. The following abnormal movements were seen: Strength is 5/5 throughout all four extremities. He has left > right spasticity more so in the legs. . Gait Casual gait: Wide stance. Spastic gait. Assessment and Plan: Assessment Mr. 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 The following are the current problems noted and addressed during this visit: Overactive bladder (primary encounter diagnosis) Muscle spasticity Hsp (hereditary spastic paraplegia) (formerly [facility]) Plan 06/12/2023 Visit: HSP - Medications renewed today. Overactive bladder - Continue Vesicare Updated Movement Disorders Medication Schedule: Medications AM Noon PM Baclofen 10 mg 2 2 2 Gabapentin 300 mg 1 Vesicare 10 mg 1 Thank you for allowing me to be part of the clinical care of this patient! I look forward to continued participation in the patient s care with you. Please do not hesitate to call with any questions. Sincerely, Mickey Schmidt MD documented in this encounter [facility] 06-12-2023 Note HNO ID: [id number] Author: Mickey Schmidt MD Service: ? Author Type: Physician Type: Progress Notes Filed: 06/12/2023 5:05 PM Note Text: [facility] - FOLLOW UP EVALUATION Asa Godinez MD [address] [facility] [address] Dear Asa Godinez MD: I had the pleasure of seeing Mr. Torres for follow-up today. As you know he is a 62 year old left-handed male with a history of history of hereditary spastic paraparesis since early adulthood . He is seen alone. Subjective Previous Plan-12/05/2022 Visit: HSP - Doing well, No changes today. Follow up 6-12 months. Interval History: He is doing OK. His left leg is giving more trouble with stairs. He doesn't fall. He uses a cane and walker, mostly the cane. At home he holds onto the wall. He has a grab bar by the shower. Movement Disorders Medications Schedule - as of the start of the visit: Medications AM Noon PM Baclofen 10 mg 2 2 2 Gabapentin 300 mg 1 Vesicare 10 mg 1 Other Movement Disorder Prior Therapies Gabapentin Baclofen ALLERGIES No Known Allergies Current Outpatient Medications Medication Sig tamsulosin (FLOMAX) 0.4 mg 0.4 mg once daily. Cyanocobalamin 1,000 mcg TbER TAKE 1 TABLET BY MOUTH EVERY DAY lactulose (DUPHALAC, CONSTULOSE) 10 gram/15 mL solution TAKE 30 ML EVERY OTHER DAY (Patient taking differently: TAKE 30 ML EVERY DAY) Nfanl-1-KKK-EPA-Fish Oil 1,000 mg (120 mg-180 mg) cap Take 1,000 mg by mouth once daily. Cholecalciferol, Vitamin D3, 25 mcg (1,000 unit) cap Take 1,000 Units by mouth once daily. solifenacin (VESICARE) 10 mg tablet Take 1 tablet by mouth once daily. gabapentin (NEURONTIN) 300 mg capsule Take 1 capsule by mouth daily at bedtime. baclofen 10 mg tablet Take 2 tablets by mouth three times a day. No current facility-administered medications for this visit. Objective Vital Signs: BP 128/86 (BP Site: Left Arm, BP Position: Sitting, BP Cuff Size: Regular Adult) Pulse 86 Ht 188 cm (6' 2 ) Wt 88.5 kg (195 lb) SpO2 97% BMI 25.04 kg/m? Orthostatic Vitals: None for this encounter No LMP for male patient. Body mass index is 25.04 kg/m?. General Physical Examination: General Exam General Neurological Examination: Neurological Exam Mental Status Awake, alert and oriented to person, place and time. Recent and remote memory are intact. Speech is normal. Language is fluent with no aphasia. Cranial Nerves CN II-XII grossly intact, except as otherwise noted. Motor Normal muscle bulk throughout. Normal muscle tone. The following abnormal movements were seen: Strength is 5/5 throughout all four extremities. He has left > right spasticity more so in the legs. . Gait Casual gait: Wide stance. Spastic gait. Assessment and Plan: Assessment Mr. 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 The following are the current problems noted and addressed during this visit: Overactive bladder (primary encounter diagnosis) Muscle spasticity Hsp (hereditary spastic paraplegia) (formerly [facility]) Plan 06/12/2023 Visit: HSP - Medications renewed today. Overactive bladder - Continue Vesicare Updated Movement Disorders Medication Schedule: Medications AM Noon PM Baclofen 10 mg 2 2 2 Gabapentin 300 mg 1 Vesicare 10 mg 1 Thank you for allowing me to be part of the clinical care of this patient! I look forward to continued participation in the patient?s care with you. Please do not hesitate to call with any questions. Sincerely, Mickey Schmidt MD [facility] 05-23-2023 Note HNO ID: [id number] Author: Reji Farr MD Service: ? Author Type: Physician Type: Progress Notes Filed: 05/23/2023 8:55 AM Note Text: [facility] NEUR[facility] VISIT Date: May 23, 2023 Name: Gaurang Torres SUBJECTIVE: Subjective history Botox helpful. Big toes are still going up. Otherwise he is happy. 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) Other: HSP Date of diagnosis: >10 years Other treatments that have been tried and failed: Medications Other muscle relaxants braces Date of first neurotoxin treatment: 09/05/2021 Type of neurotoxin given: OnabotulinumtoxinA (Botox) Frequency of current neurotoxin treatment: 90 days Estimated frequency and duration of treatment: continue with current injection interval; will reassess after 1 year Last Injection Notes Date of last Injection: 02/21/2023 Type of neurotoxin: OnabotulinumtoxinA (Botox) Total amount injected: 500 units Degree of effectiveness of last injection:65% Duration of effect: 12 week(s) Side effects related to last injection: None Current pain symptoms: No Current functional limitations: severe Last neurotoxin regimen: Med left right midline Gastrocnemius Lateral 55 30 Medial 100 60 Soleus 45 30 Tibialis posterior 100 60 EHL 10 10 Total: 500 Questionnaires: In addition, the following areas that may be affected by abnormal involuntary movements were evaluated: Daily activities Difficulties with eatin (none) Difficulties in dressin (none) Difficulties with hygiene activities: 0 (none) Difficulties with handwritin (none) Difficulties with doing hobbies and other activities: Yes (slight) Difficulties turning in bed: 0 (none) Difficulties getting out of bed, car or chair: Yes (slight) Tremors/Gait/Balance Shaking or tremors: 0 (none) Walking and balance problems: Yes (moderate) Number of falls in the Last Month: Gait freezing: Autonomic/Pain Lightheadeness on standin (none) Urinary problems: Constipation problems: 0 (none) Pain and other sensations: 0 (none) Speech/Swallowing Speech problems: 0 (none) Droolin (none) Chewing and swallowing problems: 0 (none) Sleep/Fatigue Sleep problems: Yes (slight) Daytime sleepiness: Yes (mild) Fatigue: Mood/Behavior Depression: PHQ-9 Score: 1 usually representing no significant (0-4) depression. Anxiety: Finally, the following table shows the patient's overall global physical and mental health using the PROMIS scale: PROMIS-10 Flowsheet Row Office Visit from 05/23/2023 in Neurology Office Visit from 02/21/2023 in Neurology Global Physical Health T Score 50.8 50.8 Global Mental Health T Score 48.3 48.3 0-10 Standard Pain Scale 5 5 *PROMIS-10 scoring scale: mean = 50, over 50 is above average, under 50 is below average Allergies: ALLERGIES No Known Allergies Current Medications: Current Outpatient Medications Medication Sig gabapentin (NEURONTIN) 300 mg capsule Take 1 capsule by mouth daily at bedtime. solifenacin (VESICARE) 10 mg tablet Take 1 tablet by mouth once daily. baclofen (LIORESAL) 10 mg tablet Take 2 tablets by mouth three times daily. tamsulosin (FLOMAX) 0.4 mg 0.4 mg once daily. Cyanocobalamin 1,000 mcg TbER TAKE 1 TABLET BY MOUTH EVERY DAY lactulose (DUPHALAC, CONSTULOSE) 10 gram/15 mL solution TAKE 30 ML EVERY OTHER DAY (Patient taking differently: TAKE 30 ML EVERY DAY) Ncxyx-0-UUA-EPA-Fish Oil 1,000 mg (120 mg-180 mg) cap Take 1,000 mg by mouth once daily. Cholecalciferol, Vitamin D3, 25 mcg (1,000 unit) cap Take 1,000 Units by mouth once daily. Current Facility-Administered Medications Medication Dose Route Frequency onabotulinum toxin type A 600 Units injection (BOTOX) 600 Units INTRAMUSCULAR ONCE OBJECTIVE: BP 112/70 (BP Site: Left Arm, BP Position: Sitting, BP Cuff Size: Regular Adult) Pulse 103 Resp 16 SpO2 98% Other notable exam findings: excess plantarflexion, foot inversion bilateral lower extremities, mildly worse on right. Great toe extension L>>R. Spastic gait ASSESSMENT AND PLAN: Mr. 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 Botox is working well. Increased EHL to address big toe extension. After obtaining informed consent, neurotoxin injections were carried out as outlined below. Current Injection Note Type of neurotoxin: OnabotulinumtoxinA (Botox) Total amount drawn: 600 units Total amount injected: 520 units Total amount wasted: 80 units Dilution: 1 cc NSS/100 U Administered with EMG guidance: Yes Administered with Ultrasound guidance: No Lot#: [id number] Exp Date: 08/2025 Today's neurotoxin regimen: Med left right midline Gastrocnemius Lateral 55 30 Medial 100 60 Soleus 45 30 Tibialis poste (more content not included)... [facility] 05-23-2023 History of Present illness Narrative Images from the original note were not included. [facility] NEUR[facility] VISIT Date: May 23, 2023 Name: Gaurang Torres SUBJECTIVE: Subjective history Botox helpful. Big toes are still going up. Otherwise he is happy. 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) Other: HSP Date of diagnosis: >10 years Other treatments that have been tried and failed: Medications Other muscle relaxants braces Date of first neurotoxin treatment: 09/05/2021 Type of neurotoxin given: OnabotulinumtoxinA (Botox) Frequency of current neurotoxin treatment: 90 days Estimated frequency and duration of treatment: continue with current injection interval; will reassess after 1 year Last Injection Notes Date of last Injection: 02/21/2023 Type of neurotoxin: OnabotulinumtoxinA (Botox) Total amount injected: 500 units Degree of effectiveness of last injection:65% Duration of effect: 12 week(s) Side effects related to last injection: None Current pain symptoms: No Current functional limitations: severe Last neurotoxin regimen: Med left right midline Gastrocnemius Lateral 55 30 Medial 100 60 Soleus 45 30 Tibialis posterior 100 60 EHL 10 10 Total: 500 Questionnaires: In addition, the following areas that may be affected by abnormal involuntary movements were evaluated: Daily activities Difficulties with eatin (none) Difficulties in dressin (none) Difficulties with hygiene activities: 0 (none) Difficulties with handwritin (none) Difficulties with doing hobbies and other activities: Yes (slight) Difficulties turning in bed: 0 (none) Difficulties getting out of bed, car or chair: Yes (slight) Tremors/Gait/Balance Shaking or tremors: 0 (none) Walking and balance problems: Yes (moderate) Number of falls in the Last Month: Gait freezing: Autonomic/Pain Lightheadeness on standin (none) Urinary problems: Constipation problems: 0 (none) Pain and other sensations: 0 (none) Speech/Swallowing Speech problems: 0 (none) Droolin (none) Chewing and swallowing problems: 0 (none) Sleep/Fatigue Sleep problems: Yes (slight) Daytime sleepiness: Yes (mild) Fatigue: Mood/Behavior Depression: PHQ-9 Score: 1 usually representing no significant (0-4) depression. Anxiety: Finally, the following table shows the patient's overall global physical and mental health using the PROMIS scale: PROMIS-10 Flowsheet Row Office Visit from 05/23/2023 in Neurology Office Visit from 02/21/2023 in Neurology Global Physical Health T Score 50.8 50.8 Global Mental Health T Score 48.3 48.3 0-10 Standard Pain Scale 5 5 *PROMIS-10 scoring scale: mean = 50, over 50 is above average, under 50 is below average Allergies: ALLERGIES No Known Allergies Current Medications: Current Outpatient Medications Medication Sig gabapentin (NEURONTIN) 300 mg capsule Take 1 capsule by mouth daily at bedtime. solifenacin (VESICARE) 10 mg tablet Take 1 tablet by mouth once daily. baclofen (LIORESAL) 10 mg tablet Take 2 tablets by mouth three times daily. tamsulosin (FLOMAX) 0.4 mg 0.4 mg once daily. Cyanocobalamin 1,000 mcg TbER TAKE 1 TABLET BY MOUTH EVERY DAY lactulose (DUPHALAC, CONSTULOSE) 10 gram/15 mL solution TAKE 30 ML EVERY OTHER DAY (Patient taking differently: TAKE 30 ML EVERY DAY) Cgqmj-3-KDZ-EPA-Fish Oil 1,000 mg (120 mg-180 mg) cap Take 1,000 mg by mouth once daily. Cholecalciferol, Vitamin D3, 25 mcg (1,000 unit) cap Take 1,000 Units by mouth once daily. Current Facility-Administered Medications Medication Dose Route Frequency onabotulinum toxin type A 600 Units injection (BOTOX) 600 Units INTRAMUSCULAR ONCE OBJECTIVE: BP 112/70 (BP Site: Left Arm, BP Position: Sitting, BP Cuff Size: Regular Adult) Pulse 103 Resp 16 SpO2 98% Other notable exam findings: excess plantarflexion, foot inversion bilateral lower extremities, mildly worse on right. Great toe extension L>>R. Spastic gait ASSESSMENT AND PLAN: Mr. 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 Botox is working well. Increased EHL to address big toe extension. After obtaining informed consent, neurotoxin injections were carried out as outlined below. Current Injection Note Type of neurotoxin: OnabotulinumtoxinA (Botox) Total amount drawn: 600 units Total amount injected: 520 units Total amount wasted: 80 units Dilution: 1 cc NSS/100 U Administered with EMG guidance: Yes Administered with Ultrasound guidance: No Lot#: [id number] Exp Date: 08/2025 Today's neurotoxin regimen: Med left right midline Gastrocnemius Lateral 55 30 Medial 100 60 Soleus 45 30 Tibialis posterior 100 60 EHL 20 20 Total: 520 Future plan of care: Follow up: 3 months Neurotoxin change: No Dose change:No Dilution change:No Reji Farr MD May 23, 2023 8:50 AM Dept of NEUROLOGY TIME OUT/ PROCEDURE NOTE: Informed consent Gaurang Torres Medical Record: [id number] Procedure: neurotoxin intramuscular injection The risks, benefits and anticipated outcomes of the procedure, the risks and benefits of the alternatives to the procedure and the roles and tasks of the personnel to be involved were discussed with the patient and the patient consents to the procedure and agrees to proceed. I verify that I personally obtained Gaurang Torres's consent. Reji Farr MD May 23, 2023 8:50 AM UNIVERSAL PROTOCOL / SAFETY CHECKLIST Procedure to be Performed: neurotoxin injection Sign In: A Moment of CARE was completed. Personnel directly involved wiht the procedure wore the appropriate PPE (Personal Protective Equipment). No special equipment needed. Patient/Surrogate Stated/Verified: Patient name Date of Relative allergies The intended procedure Time Out Communication: Intended patient and procedure match the source documents. Consent documented and matches the intended procedure. No relevant labs, photos, and/or imaging studies were applicable for review. No correct side/site applicable for marking and visibility. Medications required for procedure verified. No fire risk assessment and interventions applicable. No implant(s) inserted. Sign Out: No specimen collected. No instruments, equipment or retained foreign bodies applicable. Post-procedure follow-up management communicated and Plan of Care Visit completed when applicable. -- Reji Farr MD documented in this encounter [facility] 02-23-2023 History of Present illness Narrative Images from the original note were not included. [facility] Date: February 23, 2023 Name: Gaurang Torres SUBJECTIVE: Subjective history Botox helpful. Legs don't feel so stiff. Would like to address great toe extension. Left leg stiffer than right. 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) Other: HSP Date of diagnosis: >10 years Other treatments that have been tried and failed: Medications Other muscle relaxants braces Date of first neurotoxin treatment: 09/05/2021 Type of neurotoxin given: OnabotulinumtoxinA (Botox) Frequency of current neurotoxin treatment: 90 days Estimated frequency and duration of treatment: continue with current injection interval; will reassess after 1 year Last Injection Notes Date of last Injection: 11/08/2022 Type of neurotoxin: OnabotulinumtoxinA (Botox) Total amount injected: 300 units Degree of effectiveness of last injection:50% Duration of effect: 10 week(s) Side effects related to last injection: None Current pain symptoms: No Current functional limitations: severe Last neurotoxin regimen: Med left right midline Gastrocnemius Lateral 45 30 Medial 90 60 Soleus 45 30 Tibialis posterior 90 60 Total: 450 Allergies: ALLERGIES No Known Allergies Current Medications: Current Outpatient Medications Medication Sig gabapentin (NEURONTIN) 300 mg capsule Take 1 capsule by mouth daily at bedtime. solifenacin (VESICARE) 10 mg tablet Take 1 tablet by mouth once daily. baclofen (LIORESAL) 10 mg tablet Take 2 tablets by mouth three times daily. tamsulosin (FLOMAX) 0.4 mg 0.4 mg once daily. Cyanocobalamin 1,000 mcg TbER TAKE 1 TABLET BY MOUTH EVERY DAY lactulose (DUPHALAC, CONSTULOSE) 10 gram/15 mL solution TAKE 30 ML EVERY OTHER DAY (Patient taking differently: TAKE 30 ML EVERY DAY) Rxlko-6-ALY-EPA-Fish Oil 1,000 mg (120 mg-180 mg) cap Take 1,000 mg by mouth once daily. Cholecalciferol, Vitamin D3, 25 mcg (1,000 unit) cap Take 1,000 Units by mouth once daily. No current facility-administered medications for this visit. OBJECTIVE: BP 123/71 (BP Site: Left Arm, BP Position: Sitting, BP Cuff Size: Regular Adult) Pulse 104 Ht 188 cm (6' 2 ) Wt 89.5 kg (197 lb 4.8 oz) SpO2 98% BMI 25.33 kg/m Other notable exam findings: excess plantarflexion, foot inversion bilateral lower extremities, mildly worse on right. Great toe extension. Spastic gait ASSESSMENT AND PLAN: Mr. 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 Botox is helping spasticity. Increased doses to left leg and added injections for bilateral great toe extension. Will increase auth to 600 units in case increase is needed next time. After obtaining informed consent, neurotoxin injections were carried out as outlined below. Current Injection Note Type of neurotoxin: OnabotulinumtoxinA (Botox) Total amount drawn: 500 units Total amount injected: 500 units Total amount wasted: 0 units Dilution: 1 cc NSS/100 U Administered with EMG guidance: Yes Lot#: [id number] Exp Date: 06/2025 Today's neurotoxin regimen: Med left right midline Gastrocnemius Lateral 55 30 Medial 100 60 Soleus 45 30 Tibialis posterior 100 60 EHL 10 10 Total: 500 Future plan of care: Follow up: 3 months Neurotoxin change: No Dose change:No Dilution change:No Reji Farr MD February 23, 2023 1:45 PM Dept of NEUROLOGY TIME OUT/ PROCEDURE NOTE: Informed consent Gaurang A Torres Medical Record: [id number] Procedure: neurotoxin intramuscular injection The risks, benefits and anticipated outcomes of the procedure, the risks and benefits of the alternatives to the procedure and the roles and tasks of the personnel to be involved were discussed with the patient and the patient consents to the procedure and agrees to proceed. I verify that I personally obtained Gaurang Torres's consent. Reji Farr MD February 23, 2023 1:45 PM UNIVERSAL PROTOCOL / SAFETY CHECKLIST Procedure to be Performed: neurotoxin injection Sign In: A Moment of CARE was completed. Personnel directly involved wiht the procedure wore the appropriate PPE (Personal Protective Equipment). No special equipment needed. Patient/Surrogate Stated/Verified: Patient name Date of Relative allergies The intended procedure Time Out Communication: Intended patient and procedure match the source documents. Consent documented and matches the intended procedure. No relevant labs, photos, and/or imaging studies were applicable for review. No correct side/site applicable for marking and visibility. Medications required for procedure verified. No fire risk assessment and interventions applicable. No implant(s) inserted. Sign Out: No specimen collected. No instruments, equipment or retained foreign bodies applicable. Post-procedure follow-up management communicated and Plan of Care Visit completed when applicable. -- Reji Farr MD documented in this encounter [facility] 12-05-2022 Instructions Mickey Schmidt MD - 12/05/2022 4:50 PM EDT It was a pleasure to see you today. We addressed the following diagnoses: Hsp (hereditary spastic paraplegia) (formerly [facility]) (primary encounter diagnosis) Spasticity My recommendations are as follows: 12/05/2022 Visit: HSP - Doing well, No changes today. Follow up 6-12 months. Movement Disorders Medication Schedule: Medications AM Noon PM Baclofen 10 mg 2 2 2 Gabapentin 300 mg 1 Vesicare 10 mg 1 Return at or around: 06/06/23 If there are any concerns before your next visit, please call or you can send a message through [email or web address]. You can also now schedule and select appointments through [email or web address]. Mickey Schmidt MD documented in this encounter [facility] 12-05-2022 History of Present illness Narrative [facility] - FOLLOW UP EVALUATION Asa Godinez MD NO FORWARDING ADDRESS Dear Asa Godinez MD: I had the pleasure of seeing Mr. Torres for follow-up today. As you know he is a 62 year old left-handed male with a history of history of hereditary spastic paraparesis since early adulthood . Subjective Previous Plan-06/06/2022 Visit: HSP - No changes today. Medications have been refilled. Continue with trial of Botox for the legs/foot. Interval History: Last round of botox is working well. He also feels the Vesicare is helping. He is able to garden some at home. Movement Disorders Medications Schedule - as of the start of the visit: Medications AM Noon PM Baclofen 10 mg 2 2 2 Gabapentin 300 mg 1 Vesicare 10 mg 1 Other Movement Disorder Prior Therapies Gabapentin Baclofen Questionnaires: Mood/Behavior Depression: PHQ-9 Score: 2 usually representing no significant (0-4) depression. Anxiety: YAMINI-7 Total Score: 0 usually representing no significant (0-4) anxiety. Finally, the following table shows the patient's overall global physical and mental health using the PROMIS scale: PROMIS-10 Flowsheet Row Office Visit from 10/10/2022 in Neurology Office Visit from 06/06/2022 in Neurology Global Physical Health T Score 50.8 50.8 Global Mental Health T Score -- -- 0-10 Standard Pain Scale 5 4 *PROMIS-10 scoring scale: mean = 50, over 50 is above average, under 50 is below average ALLERGIES No Known Allergies Current Outpatient Medications Medication Sig gabapentin (NEURONTIN) 300 mg capsule Take 1 capsule by mouth daily at bedtime. solifenacin (VESICARE) 10 mg tablet Take 1 tablet by mouth once daily. baclofen (LIORESAL) 10 mg tablet Take 2 tablets by mouth three times daily. tamsulosin (FLOMAX) 0.4 mg 0.4 mg once daily. Cyanocobalamin 1,000 mcg TbER TAKE 1 TABLET BY MOUTH EVERY DAY lactulose (DUPHALAC, CONSTULOSE) 10 gram/15 mL solution TAKE 30 ML EVERY OTHER DAY (Patient taking differently: TAKE 30 ML EVERY DAY) Bjazk-7-JXM-EPA-Fish Oil 1,000 mg (120 mg-180 mg) cap Take 1,000 mg by mouth once daily. Cholecalciferol, Vitamin D3, 25 mcg (1,000 unit) cap Take 1,000 Units by mouth once daily. No current facility-administered medications for this visit. Objective Vital Signs: BP 126/73 (BP Site: Left Arm, BP Position: Sitting, BP Cuff Size: Regular Adult) Pulse 93 Ht 188 cm (6' 2 ) Wt 91.2 kg (201 lb 1.6 oz) SpO2 97% BMI 25.82 kg/m Orthostatic Vitals: None for this encounter No LMP for male patient. Body mass index is 25.82 kg/m . General Physical Examination: General Exam General Neurological Examination: Neurological Exam Mental Status Awake, alert and oriented to person, place and time. Recent and remote memory are intact. Speech is normal. Language is fluent with no aphasia. Cranial Nerves CN II-XII grossly intact, except as otherwise noted. Motor Normal muscle bulk throughout. Normal muscle tone. The following abnormal movements were seen: Strength is 5/5 throughout all four extremities. He has left > right spasticity more so in the legs. . Gait Casual gait: Wide stance. Spastic gait. Assessment and Plan: Assessment Mr. 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 The following are the current problems noted and addressed during this visit: Hsp (hereditary spastic paraplegia) (formerly [facility]) (primary encounter diagnosis) Spasticity Plan 12/05/2022 Visit: HSP - Doing well, No changes today. Follow up 6-12 months. Updated Movement Disorders Medication Schedule: Medications AM Noon PM Baclofen 10 mg 2 2 2 Gabapentin 300 mg 1 Vesicare 10 mg 1 Return at or around: 06/06/23 Thank you for allowing me to be part of the clinical care of this patient! I look forward to continued participation in the patient s care with you. Please do not hesitate to call with any questions. Sincerely, Mickey Schmidt MD documented in this encounter [facility] 11-08-2022 History of Present illness Narrative Images from the original note were not included. [facility] Neuro[facility] Visit Date: November 08, 2022 Name: Gaurang Torres SUBJECTIVE: Subjective history Botox has not been working well. Mild benefit only, noticing he is getting worse waiting for appointment today. Historical/ Initial Dose Diagnosis: Lower limb spasticity (M62.838) Date of diagnosis: >10 years Other treatments that have been tried and failed: Medications Other muscle relaxants braces Date of first neurotoxin treatment: 09/05/2021 Type of neurotoxin given: OnabotulinumtoxinA (Botox) Frequency of current neurotoxin treatment: 90 days Estimated frequency and duration of treatment: continue with current injection interval; will reassess after 1 year Last Injection Notes Date of last Injection: 06/25/2022 Type of neurotoxin: OnabotulinumtoxinA (Botox) Total amount injected: 300 units Degree of effectiveness of last injection:10% Duration of effect: 4 week(s) Side effects related to last injection: None Current pain symptoms: No Current functional limitations: severe Last neurotoxin regimen: Med left midline right Gastrocnemius Lateral 30 20 Medial 60 40 Soleus 30 20 Tibialis posterior 60 40 Total: 300 Questionnaires: In addition, the following areas that may be affected by abnormal involuntary movements were evaluated: Daily activities Difficulties with eatin (none) Difficulties in dressin (none) Difficulties with hygiene activities: 0 (none) Difficulties with handwritin (none) Difficulties with doing hobbies and other activities: 0 (none) Difficulties turning in bed: 0 (none) Difficulties getting out of bed, car or chair: 0 (none) Tremors/Gait/Balance Shaking or tremors: 0 (none) Walking and balance problems: Yes (mild) Number of falls in the Last Month: 0 Gait freezing: Autonomic/Pain Lightheadeness on standin (none) Urinary problems: Yes (slight) Constipation problems: 0 (none) Pain and other sensations: 0 (none) Speech/Swallowing Speech problems: 0 (none) Droolin (none) Chewing and swallowing problems: 0 (none) Sleep/Fatigue Sleep problems: Yes (slight) Daytime sleepiness: Yes (slight) Fatigue: 0 (none) Mood/Behavior Depression: PHQ-9 Score: 0 usually representing no significant (0-4) depression. Anxiety: Finally, the following table shows the patient's overall global physical and mental health using the PROMIS scale: PROMIS-10 Flowsheet Row Office Visit from 10/10/2022 in Neurology Office Visit from 06/06/2022 in Neurology Global Physical Health T Score 50.8 50.8 Global Mental Health T Score -- -- 0-10 Standard Pain Scale 5 4 *PROMIS-10 scoring scale: mean = 50, over 50 is above average, under 50 is below average Allergies: ALLERGIES No Known Allergies Current Medications: Current Outpatient Medications Medication Sig gabapentin (NEURONTIN) 300 mg capsule Take 1 capsule by mouth daily at bedtime. solifenacin (VESICARE) 10 mg tablet Take 1 tablet by mouth once daily. baclofen (LIORESAL) 10 mg tablet Take 2 tablets by mouth three times daily. tamsulosin (FLOMAX) 0.4 mg 0.4 mg once daily. Cyanocobalamin 1,000 mcg TbER TAKE 1 TABLET BY MOUTH EVERY DAY lactulose (DUPHALAC, CONSTULOSE) 10 gram/15 mL solution TAKE 30 ML EVERY OTHER DAY (Patient taking differently: TAKE 30 ML EVERY DAY) Anbok-1-SLP-EPA-Fish Oil 1,000 mg (120 mg-180 mg) cap Take 1,000 mg by mouth once daily. Cholecalciferol, Vitamin D3, 25 mcg (1,000 unit) cap Take 1,000 Units by mouth once daily. No current facility-administered medications for this visit. OBJECTIVE: BP 145/89 (BP Site: Left Arm, BP Position: Sitting, BP Cuff Size: Regular Adult) Pulse 104 Ht 188 cm (6' 2 ) Wt 92.6 kg (204 lb 3.2 oz) SpO2 99% BMI 26.22 kg/m Other notable exam findings: excess plantarflexion, foot inversion bilateral lower extremities, mildly worse on right. Spastic gait ASSESSMENT AND PLAN: Mr. Torres is a left-handed 62 year old male with Lower limb spasticity (M62.838). minimal to mild benefit from Botox so far. Increased dose today After obtaining informed consent, neurotoxin injections were carried out as outlined below. Current Injection Note Type of neurotoxin: OnabotulinumtoxinA (Botox) Total amount drawn: 500 units Total amount injected: 450 units Total amount wasted: 50 units Dilution: 1 cc NSS/100 U Administered with EMG guidance: Yes Lot#: [id number] Exp Date: 09/2024 Today's neurotoxin regimen: Med left right midline Gastrocnemius Lateral 45 30 Medial 90 60 Soleus 45 30 Tibialis posterior 90 60 Total: 450 Future plan of care: Follow up: 3 months Neurotoxin change: No Dose change:No Dilution change:No Reji Farr MD November 08, 2022 3:43 PM Dept of NEUROLOGY TIME OUT/ PROCEDURE NOTE: Informed consent Gaurang Torres Medical Record: [id number] Procedure: neurotoxin intramuscular injection The risks, benefits and anticipated outcomes of the procedure, the risks and benefits of the alternatives to the procedure and the roles and tasks of the personnel to be involved were discussed with the patient and the patient consents to the procedure and agrees to proceed. I verify that I personally obtained Gaurang Serenity Trevor's consent. Reji Farr MD November 08, 2022 3:43 PM UNIVERSAL PROTOCOL / SAFETY CHECKLIST Procedure to be Performed: neurotoxin injection Sign In: A Moment of CARE was completed. Personnel directly involved wiht the procedure wore the appropriate PPE (Personal Protective Equipment). No special equipment needed. Patient/Surrogate Stated/Verified: Patient name Date of Relative allergies The intended procedure Time Out Communication: Intended patient and procedure match the source documents. Consent documented and matches the intended procedure. No relevant labs, photos, and/or imaging studies were applicable for review. No correct side/site applicable for marking and visibility. Medications required for procedure verified. No fire risk assessment and interventions applicable. No implant(s) inserted. Sign Out: No specimen collected. No instruments, equipment or retained foreign bodies applicable. Post-procedure follow-up management communicated and Plan of Care Visit completed when applicable. -- Reji Farr MD documented in this encounter [facility] 11-07-2022 Miscellaneous Notes Received botox approval from [facility] ins for a total of 1600 units. Letter sent to scanning documented in this encounter [facility] 11-07-2022 Miscellaneous Notes Patient's prior authorization for 500 unites Botox was never initiated This RN contacted [facility] Insurance Per [employer], Viktoriya Centeno, patient is approved for 400 unites However, patient is approved for 1600 units of Botox to be used from 02/18/2022 until 02/05/2023 under authorization #[id number] Patient has received Botox twice since 02/18/2022 300 units 03/21/2022 300 units 06/25/2022 1600 - 600 = 1000 Patient may receive 500 units during office visit tomorrow Patient will then have 500 more units left until 02/05/2023 Then a new prior authorization will be required. [employer] to fax copy of authorization to office Dr. Farr updated on status of authorization Plan to continue with injection tomorrow as scheduled Closing encounter documented in this encounter [facility] 10-10-2022 History of Present illness Narrative Patient presented for Botox today. Mild improvement and wants to try higher dose. Unfortunately, insurance authorization was not completed to allow the dose to be increased to 500 units per plan last visit. Therefore he is in agreement NOT to inject today. Will make a return Botox appointment for 11/08 and start auth process. documented in this encounter [facility] 06-25-2022 History of Present illness Narrative Images from the original note were not included. [facility] Neurotoxin Visit Date: June 25, 2022 Name: Gaurang Torres SUBJECTIVE: Subjective history Botox again did not seem to work. Feels left leg is stiffer than the right. Historical/ Initial Dose Diagnosis: Lower limb spasticity (M62.838) Date of diagnosis: >10 years Other treatments that have been tried and failed: Medications Other muscle relaxants braces Date of first neurotoxin treatment: 09/05/2021 Type of neurotoxin given: OnabotulinumtoxinA (Botox) Frequency of current neurotoxin treatment: 90 days Estimated frequency and duration of treatment: continue with current injection interval; will reassess after 1 year Last Injection Notes Date of last Injection: 03/21/2022 Type of neurotoxin: OnabotulinumtoxinA (Botox) Total amount injected: 240 units Degree of effectiveness of last injection:0% Duration of effect: 0 week(s) Side effects related to last injection: None Current pain symptoms: No Current functional limitations: severe Last neurotoxin regimen: Med left midline right Gastrocnemius Lateral 20 20 Medial 40 40 Soleus 20 20 Tibialis posterior 40 40 Total: 240 Questionnaires: In addition, the following areas that may be affected by abnormal involuntary movements were evaluated: Daily activities Difficulties with eatin (none) Difficulties in dressin (none) Difficulties with hygiene activities: 0 (none) Difficulties with handwritin (none) Difficulties with doing hobbies and other activities: Difficulties turning in bed: 0 (none) Difficulties getting out of bed, car or chair: 0 (none) Tremors/Gait/Balance Shaking or tremors: 0 (none) Walking and balance problems: Yes (moderate) Number of falls in the Last Month: None Gait freezin (none) Autonomic/Pain Lightheadeness on standin (none) Urinary problems: Yes (slight) Constipation problems: Yes (slight) Pain and other sensations: 0 (none) Speech/Swallowing Speech problems: 0 (none) Droolin (none) Chewing and swallowing problems: 0 (none) Sleep/Fatigue Sleep problems: Yes (slight) Daytime sleepiness: Yes (slight) Fatigue: 0 (none) Allergies: ALLERGIES No Known Allergies Current Medications: Current Outpatient Medications Medication Sig gabapentin (NEURONTIN) 300 mg capsule Take 1 capsule by mouth daily at bedtime. solifenacin (VESICARE) 10 mg tablet Take 1 tablet by mouth once daily. baclofen (LIORESAL) 10 mg tablet Take 2 tablets by mouth three times daily. tamsulosin (FLOMAX) 0.4 mg 0.4 mg once daily. Cyanocobalamin 1,000 mcg TbER TAKE 1 TABLET BY MOUTH EVERY DAY lactulose (DUPHALAC, CONSTULOSE) 10 gram/15 mL solution TAKE 30 ML EVERY OTHER DAY Dvkgd-7-OGS-EPA-Fish Oil 1,000 mg (120 mg-180 mg) cap Take 1,000 mg by mouth once daily. Cholecalciferol, Vitamin D3, 25 mcg (1,000 unit) cap Take 1,000 Units by mouth once daily. No current facility-administered medications for this visit. OBJECTIVE: BP 142/88 (BP Site: Left Arm, BP Position: Sitting, BP Cuff Size: Regular Adult) Pulse 112 Ht 188 cm (6' 2 ) Wt 90.3 kg (199 lb) SpO2 98% BMI 25.55 kg/m Other notable exam findings: excess plantarflexion, foot inversion bilateral lower extremities, mildly worse on right ASSESSMENT AND PLAN: Mr. Torres is a left-handed 61 year old male with Lower limb spasticity (M62.838). No benefit noted after the first injection. Will increase dose today and increase authorization to 500 units. Increased only the left since elected to make significant increase on one side rather than probably insignificant increase bilaterally. After obtaining informed consent, neurotoxin injections were carried out as outlined below. Current Injection Note Type of neurotoxin: OnabotulinumtoxinA (Botox) Total amount drawn: 300 units Total amount injected: 300 units Total amount wasted: 0 units Dilution: 1 cc NSS/100 U Administered with EMG guidance: Yes Lot#: [id number] Exp Date: 10/2023 Today's neurotoxin regimen: Med left midline right Gastrocnemius Lateral 30 20 Medial 60 40 Soleus 30 20 Tibialis posterior 60 40 Total: 300 Future plan of care: Follow up: 3 months Neurotoxin change: No Dose change:Yes New dose: 500 Reason for changing neurotoxin type of dose: no response to lower dose Sent staff message to nursing related to any changes: Yes Dilution change:No Reji Farr MD June 25, 2022 8:31 AM Dept of NEUROLOGY TIME OUT/ PROCEDURE NOTE: Informed consent Gaurang Serenity Torres Medical Record: [id number] Procedure: neurotoxin intramuscular injection The risks, benefits and anticipated outcomes of the procedure, the risks and benefits of the alternatives to the procedure and the roles and tasks of the personnel to be involved were discussed with the patient and the patient consents to the procedure and agrees to proceed. I verify that I personally obtained Gaurang Torres's consent. Reji Farr MD June 25, 2022 8:31 AM UNIVERSAL PROTOCOL / SAFETY CHECKLIST Procedure to be Performed: neurotoxin injection Sign In: A Moment of CARE was completed. Personnel directly involved wiht the procedure wore the appropriate PPE (Personal Protective Equipment). No special equipment needed. Patient/Surrogate Stated/Verified: Patient name Date of Relative allergies The intended procedure Time Out Communication: Intended patient and procedure match the source documents. Consent documented and matches the intended procedure. No relevant labs, photos, and/or imaging studies were applicable for review. No correct side/site applicable for marking and visibility. Medications required for procedure verified. No fire risk assessment and interventions applicable. No implant(s) inserted. Sign Out: No specimen collected. No instruments, equipment or retained foreign bodies applicable. Post-procedure follow-up management communicated and Plan of Care Visit completed when applicable. -- Reji Farr MD documented in this encounter [facility] 05-27-2022 Instructions Everett Mark MD - 05/27/2022 1:00 PM EST Thank you for coming to see me today. It is my pleasure to take care of you. If you have any questions regarding your visit, please don't hesitate to contact us. documented in this encounter [facility] 05-27-2022 History of Present illness Narrative DISTANCE HEALTH VISIT This Team Access Model visit is a phone encounter. It required patient-provider interaction for the medical decision making as documented below. Gaurang Torres is a 61 year old male seen for family history of colon cancer. His last colonoscopy was about 3 years ago and it was incomplete secondary to moderately poor prep. He still has some issues with constipation but was recently placed on lactulose. He states this lactulose has been helping. He denies any blood in his stool. HISTORY REVIEWED (electronic chart updated): - medical history - medications - allergies - family history REVIEW OF SYSTEMS: GENERAL: feeling well without fatigue, no recent change in weight RESPIRATORY: no cough, no wheezing or shortness of breath CARDIOVASCULAR: no chest pain, no palpitations GI: normal appetite, tolerating PO well, and no abdominal pain PHYSICAL EXAMINATION: VIDEO EXAM: (if done, performed via video enabled technology) No exam performed ASSESSMENT: (Z12.11) Encounter for screening colonoscopy (primary encounter diagnosis) (Z80.0) Family history of colon cancer PLAN: ASSESSMENT/PLAN: 1. Encounter for screening colonoscopy - ICD9: V76.51, ICD10: Z12.11 (primary diagnosis) Recommended proceeding with a colonoscopy. The risks, and complications of the procedure were reviewed with him in detail including bleeding, missing the lesion and perforation requiring emergency surgery and anesthetic risks. He understood and was agreeable to proceed. 2. Family history of colon cancer - ICD9: V16.0, ICD10: Z80.0 As above Total time of telephone encounter: 10 minutes Everett Mark MD Patient Instructions Thank you for coming to see me today. It is my pleasure to take care of you. If you have any questions regarding your visit, please don't hesitate to contact us. Everett Mark MD documented in this encounter [facility] 05-01-2022 Miscellaneous Notes Request from patient requesting refill. Please E[facility]Sc[facility] to [facility]. Last OV: 11/22/21 with BLW Future OV: 06/06/22 with BLW Requested Prescriptions Pending Prescriptions Disp Refills gabapentin (NEURONTIN) 300 mg capsule 90 capsule 3 Sig: Take 1 capsule by mouth daily at bedtime. Maribeth Patel documented in this encounter [facility] 03-21-2022 History of Present illness Narrative Images from the original note were not included. [facility] Neurotoxin Visit Date: March 21, 2022 Name: Gaurang Torres SUBJECTIVE: Subjective history Botox did not seem to work at all this time. Historical/ Initial Dose Diagnosis: Lower limb spasticity (M62.838) Date of diagnosis: >10 years Other treatments that have been tried and failed: Medications Other muscle relaxants braces Date of first neurotoxin treatment: 09/05/2021 Type of neurotoxin given: OnabotulinumtoxinA (Botox) Frequency of current neurotoxin treatment: 90 days Estimated frequency and duration of treatment: continue with current injection interval; will reassess after 1 year Last Injection Notes Date of last Injection: 12/13/2021 Type of neurotoxin: OnabotulinumtoxinA (Botox) Total amount injected: 180 units Degree of effectiveness of last injection:0% Duration of effect: 0 week(s) Side effects related to last injection: None Current pain symptoms: No Current functional limitations: severe Last neurotoxin regimen: Left Right Gastrocnemius Lateral 15 15 Medial 30 30 Soleus 15 15 Tibialis posterior 30 30 Tibialis anterior Flexor digitorum longus Flexor digitorum brevis (Other) Allergies: ALLERGIES No Known Allergies Current Medications: Current Outpatient Medications Medication Sig tamsulosin (FLOMAX) 0.4 mg 0.4 mg once daily. Cyanocobalamin 1,000 mcg TbER TAKE 1 TABLET BY MOUTH EVERY DAY lactulose (DUPHALAC, CONSTULOSE) 10 gram/15 mL solution TAKE 30 ML EVERY OTHER DAY gabapentin (NEURONTIN) 300 mg capsule Take 1 capsule by mouth daily at bedtime. solifenacin (VESICARE) 10 mg tablet Take 1 tablet by mouth once daily. baclofen (LIORESAL) 10 mg tablet Take 2 tablets by mouth three times daily. Oqjzi-0-CAD-EPA-Fish Oil 1,000 mg (120 mg-180 mg) cap Take 1,000 mg by mouth once daily. Cholecalciferol, Vitamin D3, 25 mcg (1,000 unit) cap Take 1,000 Units by mouth once daily. Lactobacillus acidophilus (FLORAJEN ORAL) Take by mouth once daily. (Patient not taking: Reported on 03/21/2022) Current Facility-Administered Medications Medication Dose Route Frequency onabotulinum toxin type A 300 Units injection (BOTOX) 300 Units INTRAMUSCULAR ONCE OBJECTIVE: BP 113/83 (BP Site: Left Arm, BP Position: Sitting, BP Cuff Size: Regular Adult) Pulse 75 Resp 18 Ht 188 cm (6' 2 ) Wt 88.5 kg (195 lb) SpO2 97% BMI 25.04 kg/m Other notable exam findings: excess plantarflexion, foot inversion bilateral lower extremities ASSESSMENT AND PLAN: Mr. Torres is a left-handed 61 year old male with Lower limb spasticity (M62.838) due to HSP. Last injection not effective so dose increased. After obtaining informed consent, neurotoxin injections were carried out as outlined below. Current Injection Note Type of neurotoxin: OnabotulinumtoxinA (Botox) Total amount drawn: 300 units Total amount injected: 240 units Total amount wasted: 60 units Dilution: 1 cc NSS/100 U Administered with EMG guidance: Yes Lot#: [id number] Exp Date: 06/2024 Today's neurotoxin regimen: Med left midline right Gastrocnemius Lateral 20 20 Medial 40 40 Soleus 20 20 Tibialis posterior 40 40 Future plan of care: Follow up: 3 months Neurotoxin change: No Dose change: No Reji Farr MD March 21, 2022 12:58 PM Dept of NEUROLOGY TIME OUT/ PROCEDURE NOTE: Informed consent Gaurang Torres Medical Record: [id number] Procedure: neurotoxin intramuscular injection The risks, benefits and anticipated outcomes of the procedure, the risks and benefits of the alternatives to the procedure and the roles and tasks of the personnel to be involved were discussed with the patient and the patient consents to the procedure and agrees to proceed. I verify that I personally obtained Gaurang Torres's consent. Reji Farr MD March 21, 2022 12:58 PM UNIVERSAL PROTOCOL / SAFETY CHECKLIST Procedure to be Performed: botulinum toxin injection Sign In: A Moment of CARE was completed. Personnel directly involved wiht the procedure wore the appropriate PPE (Personal Protective Equipment). No special equipment needed. Patient/Surrogate Stated/Verified: Patient name Date of Relative allergies The intended procedure Time Out Communication: Intended patient and procedure match the source documents. Consent documented and matches the intended procedure. No relevant labs, photos, and/or imaging studies were applicable for review. No correct side/site applicable for marking and visibility. Medications required for procedure verified. No fire risk assessment and interventions applicable. No implant(s) inserted. Sign Out: No specimen collected. No instruments, equipment or retained foreign bodies applicable. Post-procedure follow-up management communicated and Plan of Care Visit completed when applicable. -- Reji Farr MD documented in this encounter [facility] 12-26-2021 Miscellaneous Notes Form received, partially completed andin outbox for Dr Oteros to complete section C and sign. Merlin Langston RN Forms received. Printed to nurses printer for completion and scanned into chart for accessibility. Received disability forms from [employer]. Forms faxed to [facility] at [phone] for nurse completion. documented in this encounter [facility] 12-13-2021 History of Present illness Narrative Images from the original note were not included. [facility] Neurotoxin Visit Date: December 13, 2021 Name: Gaurang Torres SUBJECTIVE: Historical/ Initial Dose Diagnosis: Lower limb spasticity (M62.838) Date of diagnosis:more than 10 years Other treatments that have been tried and failed: Medications and braces Date of first neurotoxin treatment: 09/05/21 Type of neurotoxin given: Botox: J0585 Frequency of current neurotoxin treatment: 90days Estimated frequency and duration of treatment: continue with current injection interval; will reassess after 1 year Last Injection Notes Date of last Injection:09/05/21 Type of neurotoxin: Botox: J0585 Total amount injected: 90 units Dilution: NS 1:1 Administered with EMG guidance: Yes Effectiveness of last injection: Worked very well. Legs do not feel like cement. Would still like to walk better. Latency period of last injection: Wearing off period of last injection: 0 week(s) Side effects related to last injection: None Current functional limitations: 2(moderate) Movement Disorders/Pertinent Medications Schedule - as of the start of the visit: AM Noon PM Baclofen 10 mg 2 2 2 Gabapentin 300 mg 1 Vesicare 10 mg 1 Other Movement Disorder Prior Therapies Gabapentin Baclofen ALLERGIES No Known Allergies Current Medications: Current Outpatient Medications Medication Sig tamsulosin (FLOMAX) 0.4 mg 0.4 mg once daily. Cyanocobalamin 1,000 mcg TbER TAKE 1 TABLET BY MOUTH EVERY DAY lactulose (DUPHALAC, CONSTULOSE) 10 gram/15 mL solution TAKE 30 ML EVERY OTHER DAY gabapentin (NEURONTIN) 300 mg capsule Take 1 capsule by mouth daily at bedtime. solifenacin (VESICARE) 10 mg tablet Take 1 tablet by mouth once daily. baclofen (LIORESAL) 10 mg tablet Take 2 tablets by mouth three times daily. Lactobacillus acidophilus (FLORAJEN ORAL) Take by mouth once daily. Zkzdk-2-AYT-EPA-Fish Oil (FISH OIL) 1,000 mg (120 mg-180 mg) cap Take 1,000 mg by mouth once daily. Cholecalciferol, Vitamin D3, (VITAMIN D) 1,000 unit cap Take 1,000 Units by mouth once daily. No current facility-administered medications for this visit. OBJECTIVE: BP 125/79 Pulse 84 Ht 188 cm (6' 2 ) Wt 88.6 kg (195 lb 6.4 oz) SpO2 97% BMI 25.09 kg/m Special features on today's visit: excess plantarflexion, foot inversion bilateral lower extremities ASSESSMENT AND PLAN: Mr. 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 Botox treatment to left leg last visit very helpful. Added right side. The following are the current problems noted and addressed during this visit: Muscle spasticity (primary encounter diagnosis) Hereditary spastic paraparesis (hcc) Plan 12/13/2021 Visit: 1. Botox today 2. Updated Pertinent Medication Schedule: AM Noon PM Baclofen 10 mg 2 2 2 Gabapentin 300 mg 1 Vesicare 10 mg 1 PROCEDURE NOTE: After obtaining informed consent, neurotoxin injections were carried out as outlined below. TIME OUT/ PROCEDURE NOTE: UNIVERSAL PROTOCOL / SAFETY CHECKLIST Procedure to be Performed: Botulinum toxin injection Sign In: A Moment of CARE was completed. Personnel directly involved with the procedure wore the appropriate PPE (Personal Protective Equipment). No special equipment needed. Patient/Surrogate Stated/Verified: PATIENT VERIFIED(optional for EMERGENT procedures): Patient name, Date of , Relevant allergies and The intended procedure Time Out Communication: Intended patient and procedure match the source documents. Consent documented and matches the intended procedure. No relevant labs, photos, and/or imaging studies were applicable for review. No correct side/site applicable for marking and visibility. Medications required for procedure verified. No fire risk assessment and interventions applicable. No implant(s) inserted. Sign Out: SIGN OUT (optional for EMERGENT procedures): No specimen collected. No instruments, equipment or retained foreign bodies applicable. Post-procedure follow-up management communicated and Plan of Care Visit completed when applicable. Current Injection Note (12/13/2021) Type of neurotoxin: Botox: J0585 Total amount drawn: 200 units Total amount injected: 180 units Total amount wasted: 20 units Dilution: NS 1:1 Administered with EMG guidance: Yes Injection Site: Lower limb Spasticity: CPT 44905 Left Right Gastrocnemius Lateral 15 15 Medial 30 30 Soleus 15 15 Tibialis posterior 30 30 Tibialis anterior Flexor digitorum longus Flexor digitorum brevis (Other) Future plan of care: Return in about 3 months (around 03/15/2022) for Botox. Reji Farr M.D. Clinical Paper Coating Machine Operator, [facility] Staff, [facility] documented in this encounter [facility] 10-17-2021 Miscellaneous Notes Received office notes from [facility]. Notes sent to [facility]. documented in this encounter [facility] 10-01-2021 Miscellaneous Notes Left message with Dr. Hernandez's number. Sheron Marte MA I do not personally know any of the urologists to make a personal recommendation, however, we often refer to Dr. Hernandez. Many of our patients see him and like him. Patient left message stating that Dr. Schmidt suggested he see a urologist. Patient would like to know who Dr. Godinez recommends. Please advise. Shruthi Nash MA documented in this encounter [facility] 09-27-2021 Miscellaneous Notes Lets have him see urology and see what they suggest. Ill place consult Pt's update has been forwarded to Dr Schmidt for review. Merlin Langston RN NI PHONE Name of caller : Gaurang Torres Relationship to patient : Self If not self Will need patient permission to release results or disclose health information with called documented in fyi. Was permission obtained from patient ? Yes Patient identified by Name and Date of . ( Gaurang Torres, 1960). Yes Reason for Call : Solifenacin 10 mg tablets isn't working for spastic bladder. Pt has been taking meds for several years. Number to return call [phone] Okay to leave a message ? Yes Last office visit 04/26/[address] Mickey Schmidt Next office visit 11/22/[address] Mickey Schmdit Thank you calling [facility]. You will receive a return call within 48 hours ( or 2 business days if close to the weekend). If you feel that this is an urgent issue and needs immediate attention, it is recommended that you contact your primary care provider office or proceed to your nearest Urgent Care Center of Emergency Room ED for evaluation/treatment. documented in this encounter [facility] Evaluation note Diagnosis Overactive bladder- Primary Hypertonicity of bladder Hereditary spastic paraparesis (HCC) Hereditary spastic paraplegia [facility] Diagnosis Muscle spasticity- Primary Spasm of muscle Hereditary spastic paraparesis (HCC) [facility]reditary sp[facility]leg[facility] Muscle spasticity- Primary Spasm of muscle Hereditary spastic paraparesis (HCC) [facility]reditary spastic paraplegia [facility] Encounter for screening colonoscopy- Primary Special screening for malignant neoplasms, colon [facility] Diagnosis Encounter for screening colonoscopy- Primary Special screening for malignant neoplasms, colon Family history of colon cancer Family history of malignant neoplasm of gastrointestinal tract [facility] Diagnosis Hereditary spastic paraparesis (HCC)- Primary Hereditary spastic paraplegia Muscle spasticity Spasm of muscle [facility]* Diagnosis Family history of colon cancer- Primary Family history of malignant neoplasm of gastrointestinal tract Encounter for screening colonoscopy Special screening for malignant neoplasms, colon documented in this encounter [facility] note* Diagnosis Hereditary spastic paraparesis (HCC)- Primary Hereditary spastic paraplegia [facility]* Diagnosis 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) Hereditary spastic paraplegia [facility]* Diagnosis HSP (hereditary spastic paraplegia) (HCC)- Primary Hereditary spastic paraplegia Spasticity Abnormal involuntary movements [facility]* Diagnosis Muscle spasticity- Primary Spasm of muscle Hereditary spastic paraparesis (HCC) Hereditary spastic paraplegia documented [facility]* Diagnosis Muscle spasticity- Primary Spasm of muscle Hereditary spastic paraparesis (HCC) Hereditary spastic paraplegia [facility]* Diagnosis Overactive bladder- Primary Hypertonicity of bladder Muscle spasticity Spasm of muscle HSP (hereditary spastic paraplegia) (HCC) Hereditary spastic paraplegia documented in this encounter [facility] note* Diagnosis HSP (hereditary spastic paraplegia) (HCC)- Primary Hereditary spastic paraplegia Bilateral leg edema Edema Overactive bladder Hypertonicity of bladder Muscle spasticity Spasm of muscle documented in this encounter [facility] for referral (narrative)* Outpatient Procedure (Routine) - Pending Review Specialty Diagnoses / Procedures Referred By Dakotah kerr Referred To Contact [facility] Diagnoses Encounter for screening colonoscopy Procedures COLONOSCOPY SCREENING COLONOSCOPY FLX DX W/COLLJ SPEC WHEN Everett De Jesus MD [address] [address] [facility] [place] [address] Referral ID Status Reason Start Date Expiration Date Visits Requested Visits Authorized [id number] Pending Review Auto-Generat ed Referral 2 05/27/2023 1 1 [facility] for referral (narrative)* Outpatient Procedure (Routine) - Pending Review Specialty Diagnoses / Procedures Referred By Dakotah kerr Referred To Contact [facility] Diagnoses Family history of colon cancer Encounter for screening colonoscopy Procedures COLONOSCOPY SCREENING COLONOSCOPY FLX DX W/COLLJ SPEC WHEN PFRMD Everett Mark MD [address] [facility] [address] [place] [address] [facility] [address] [place] [address] Referral ID Status Reason Start Date Expiration Date Visits Requested Visits Authorized [id number] Pending Review Auto-Generat ed Referral 07/30/2022 06/25/2023 1 1 [facility] for visit Narrative* Diagnostic Procedure Only (Routine) - Closed Specialty Diagnoses / Procedures Referred By Dakotah kerr Referred To Contact [facility] Diagnoses Localized edema outside order. scanned Procedures ECHO TTHRC R-T 2D W/WOM-MODE COMPL SPEC&COLR D ECHO Vernell Atkinson, ENGINE GENERATOR ASSEMBLER.FRUIT SHIPPER [address] [facility] [address] [place] [address] [facility] [address] [place] [address] Referral ID Status Reason Start Date Expiration Date Visits Re quested Visits Authorized [id number] Closed 03/01/2024 07/06/2024 1 1 [facility] Summary Purpose Family History No Family History Records FoundNo Family History Records FoundNo Family History Records FoundNo Family History Records Found Advance Directives No Advanced Directives Records FoundDocuments on File Type Date Recorded Patient Board Layer Expl anation Advance Directive(s) 04/30/2019 11:02 AM Advance Directive(s) 04/02/2019 8:18 AM Documents on File Type Date Recorded Patient Board Layer Expl anation Advance Directive(s) 04/30/2019 11:02 AM Advance Directive(s) 04/02/2019 8:18 AM Reason for Referral Specialty Diagnoses / Procedures Referred By Dakotah kerr Referred To Contact Urology Diagnoses Overactive bladder Hereditary spastic paraparesis (HCC) Procedures CONSULT TO UROLOGY OFFICE/OUTPATIENT NEW HIGH MDM 60-74 MINUTES Mickey Schmidt MD [address] [place] [address] Referral ID Status Reason Start Date Expiration Date Visits Requested Visits Authorized [id number] Pending Review PCP Requested Referral 09/27/2021 09/27/2022 1 1 Specialty Diagnoses / Procedures Referred By Contac t Referred To Contact Diagnoses HSP (hereditary spastic paraplegia) ([facility]) Spasticity Procedures PROVIDER ORDERED FOLLOW UP OFFICE/OUTPATIENT NEW HIGH MDM 60-74 MINUTES Mickey Schmidt MD [address] [facility] [facility] [place] [address] Referral ID Status Reason Start Date Expiration Date Visits Requested Visits Authorized [id number] Pending Review PCP Requested Referral 12/05/2022 03/05/2023 1 1 Specialty Diagnoses / Procedures Referred By Contac t Referred To Contact Diagnoses HSP (hereditary spastic paraplegia) (HCC) Procedures PROVIDER ORDERED FOLLOW UP OFFICE/OUTPATIENT NEW HIGH MDM 60-74 MINUTES Mickey Schmidt MD [address] [place] [address] Referral ID Status Reason Start Date Expiration Date Visits Requested Visits Authorized [id number] Pending Review PCP Requested Referral 06/12/2023 09/10/2023 1 1 Specialty Diagnoses / Procedures Referred By Contac t Referred To Contact Diagnoses HSP (hereditary spastic paraplegia) (HCC) Procedures PROVIDER ORDERED FOLLOW UP OFFICE/OUTPATIENT NEW HIGH MDM 60 MINUTES Mickey Schmidt MD [address] [place] [address] Referral ID Status Reason Start Date Expiration Date Visits Requested Visits Authorized [id number] Authorized PCP Requested Referral 01/22/2024 04/21/2024 1 1 Specialty Diagnoses / Procedures Referred By Contac t [facility]erred To [facility] Diagnoses Bilateral leg edema Procedures ECG COMPLETE ECG ROUTINE ECG W/LEAST 12 LDS W/I&R Mickey Schmidt MD [address] [facility] [place] [address] [facility] [address] [place] [address] Referral ID Status Reason Start Date Expiration Date Visits Requested Visits Authorized [id number] Authorized Auto-Generat ed Referral 01/22/2024 01/21/2025 1 1 Medications Administered Section Inactive Administered Medications - up to 3 most recent administrations Medication Order MAR Action Action Date Dose Rate Site onabotulinum toxin type A 200 Units injection (BOTOX) 200 Units, INTRAMUSCULAR, ONCE, 1 dose, On Fri12/13/21 at 1600, REFRIGERATE - Pharmaceutical Waste: Lab Pack - Given 12/13/2021 4:12 PM EDT 180 Units Other Inactive Administered Medications - up to 3 most recent administrations Medication Order MAR Action Action Date Dose Rate Site onabotulinum toxin type A 300 Units injection (BOTOX) 300 Units, INTRAMUSCULAR, ONCE, 1 dose, On Fri03/21/22 at 1300, REFRIGERATE - Pharmaceutical Waste: Lab Pack - Given 03/21/2022 1:09 PM EDT 240 Units Other Inactive Administered Medications - up to 3 most recent administrations Medication Order MAR Action Action Date Dose Rate Site onabotulinum toxin type A 300 Units injection (BOTOX) 300 Units, INTRAMUSCULAR, ONCE, 1 dose, On Fri06/25/22 at 0830, REFRIGERATE - Pharmaceutical Waste: Lab Pack - Given 06/25/2022 8:28 AM EST 300 Units Other Inactive Administered Medications - up to 3 most recent administrations Medication Order MAR Action Action Date Dose Rate Site onabotulinum toxin type A 500 Units injection (BOTOX) 500 Units, INTRAMUSCULAR, ONCE, 1 dose, On Fri11/08/22 at 0830, REFRIGERATE - Pharmaceutical Waste: Lab Pack - Given 11/08/2022 3:39 PM EDT 500 Units Other Inactive Administered Medications - up to 3 most recent administrations Medication Order MAR Action Action Date Dose Rate Site onabotulinum toxin type A 600 Units injection (BOTOX) 600 Units, INTRAMUSCULAR, ONCE, 1 dose, On Fri05/23/23 at 0830, REFRIGERATE - Pharmaceutical Waste: Lab Pack - Given 05/23/2023 8:53 AM EST 600 Units Other Additional Source Comments (unrecognized sect ion and content) No Status Records FoundNo Status Records FoundNo Status Records FoundNo Status Records Found INFORMATION SOURCE (unrecogn ized section and content) DATE CREATED AUTHOR 06/16/2018 [facility] DATE CREATED AUTHOR AUTHOR'S ORGANIZ ATION 04/07/2019 [facility] DATE CREATED AUTHOR AUTHOR'S ORGANIZ ATION 03/12/2024 [facility] DATE CREATED AUTHOR AUTHOR'S ORGANIZ ATION 04/07/2024 [facility] Source Comments (unrecognize d section and content) In the event this informatio n is protected by the Federal Confidentiality of Alcohol and Drug Abuse Patient Records regulations: The Federal rules restrict any use of the information to criminally investigate or prosecute any alcohol or drug abuse patient.[facility] the event this information is protected by the Federal Confidentiality of Alcohol and Drug Abuse Patient Records regulations: The Federal rules restrict any use of the information to criminally investigate or prosecute any alcohol or drug abuse patient.[facility] the event this information is protected by the Federal Confidentiality of Alcohol and Drug Abuse Patient Records regulations: The Federal rules restrict any use of the information to criminally investigate or prosecute any alcohol or drug abuse patient.[facility] the event this information is protected by the Federal Confidentiality of Alcohol and Drug Abuse Patient Records regulations: The Federal rules restrict any use of the information to criminally investigate or prosecute any alcohol or drug abuse patient.[facility] the event this information is protected by the Federal Confidentiality of Alcohol and Drug Abuse Patient Records regulations: The Federal rules restrict any use of the information to criminally investigate or prosecute any alcohol or drug abuse patient.[facility] the event this information is protected by the Federal Confidentiality of Alcohol and Drug Abuse Patient Records regulations: The Federal rules restrict any use of the information to criminally investigate or prosecute any alcohol or drug abuse patient.[facility] the event this information is protected by the Federal Confidentiality of Alcohol and Drug Abuse Patient Records regulations: The Federal rules restrict any use of the information to criminally investigate or prosecute any alcohol or drug abuse patient.[facility] the event this information is protected by the Federal Confidentiality of Alcohol and Drug Abuse Patient Records regulations: The Federal rules restrict any use of the information to criminally investigate or prosecute any alcohol or drug abuse patient.[facility] the event this information is protected by the Federal Confidentiality of Alcohol and Drug Abuse Patient Records regulations: The Federal rules restrict any use of the information to criminally investigate or prosecute any alcohol or drug abuse patient.[facility] the event this information is protected by the Federal Confidentiality of Alcohol and Drug Abuse Patient Records regulations: The Federal rules restrict any use of the information to criminally investigate or prosecute any alcohol or drug abuse patient.[facility] the event this information is protected by the Federal Confidentiality of Alcohol and Drug Abuse Patient Records regulations: The Federal rules restrict any use of the information to criminally investigate or prosecute any alcohol or drug abuse patient.[facility] the event this information is protected by the Federal Confidentiality of Alcohol and Drug Abuse Patient Records regulations: The Federal rules restrict any use of the information to criminally investigate or prosecute any alcohol or drug abuse patient.[facility] the event this information is protected by the Federal Confidentiality of Alcohol and Drug Abuse Patient Records regulations: The Federal rules restrict any use of the information to criminally investigate or prosecute any alcohol or drug abuse patient.[facility] the event this information is protected by the Federal Confidentiality of Alcohol and Drug Abuse Patient Records regulations: The Federal rules restrict any use of the information to criminally investigate or prosecute any alcohol or drug abuse patient.[facility] the event this information is protected by the Federal Confidentiality of Alcohol and Drug Abuse Patient Records regulations: The Federal rules restrict any use of the information to criminally investigate or prosecute any alcohol or drug abuse patient.[facility]In the event this information is protected by the Federal Confidentiality of Alcohol and Drug Abuse Patient Records regulations: The Federal rules restrict any use of the information to criminally investigate or prosecute any alcohol or drug abuse patient.[facility]In the event this information is protected by the Federal Confidentiality of Alcohol and Drug Abuse Patient Records regulations: The Federal rules restrict any use of the information to criminally investigate or prosecute any alcohol or drug abuse patient.[facility]In the event this information is protected by the Federal Confidentiality of Alcohol and Drug Abuse Patient Records regulations: The Federal rules restrict any use of the information to criminally investigate or prosecute any alcohol or drug abuse patient.[facility]In the event this information is protected by the Federal Confidentiality of Alcohol and Drug Abuse Patient Records regulations: The Federal rules restrict any use of the information to criminally investigate or prosecute any alcohol or drug abuse patient.[facility]In the event this information is protected by the Federal Confidentiality of Alcohol and Drug Abuse Patient Records regulations: The Federal rules restrict any use of the information to criminally investigate or prosecute any alcohol or drug abuse patient.[facility]In the event this information is protected by the Federal Confidentiality of Alcohol and Drug Abuse Patient Records regulations: The Federal rules restrict any use of the information to criminally investigate or prosecute any alcohol or drug abuse patient.[facility] Reason for Visit (unrecogniz ed section and content) Reason Comments Medication Question/Solifenacin Reason Comments Patient Question Reason Comments Office notes Reason Comments Neurotoxin Injection Specialty Diagnoses / Procedures Referred By Dakotah t Referred To Contact [facility] Diagnoses Other muscle spasm Hereditary spastic paraplegia Lower limb spasticity (M62.838) Procedures BOTULINUM TOXIN A PER 1 UNIT CHEMODENERV 1 EXTREMITY 1-4 CHEMODENERV 1 EXTREM 5/> MUS CHEMODENERV 1 EXTREM 1-4 EA CHEMODENERV 1 EXTREM 5/> EA NEEDLE EMG GUIDANCE FOR CHEMODENERVATION New referral due now please Botox, 300 unitis, Every 90 days for 1 year. Administered with EMG guidance: Yes Reji Farr MD [address] [address] Reji Farr MD [address] [address] Referral ID Status Reason Start Date Expiration Date V isits Requested Visits Authorized [id number] Authorized 08/07/2021 02/04/2022 99 99 Reason Comments Disability forms Reason Comments Neurotoxin Injection Botox Specialty Diagnoses / Procedures Referred By Contac t Referred To Contact [facility] Diagnoses Other muscle spasm Hereditary spastic paraplegia M62.838 (ICD-10-CM) - Lower limb spasticity / Other muscle spasm G11.4 (ICD-10-CM) - Hereditary spastic paraplegia Procedures BOTULINUM TOXIN A PER 1 UNIT CHEMODENERVATION ONE EXTREMITY 1-4 MUSCLE CHEMODENERVATION 1 EXTREMITY 5 OR MORE MUSCLES CHEMODENERVATION 1 EXTREMITY EA ADDL 1-4 MUSCLE CHEMODENERVATION 1 EXTREMITY EA ADDL 5/> MUSCLES NEEDLE EMG GUIDANCE FOR CHEMODENERVATION New referral, due now please. Current referral expires before next appointment. Botox, 300 units, every 90 days for 1 year With EMG guidance. Reji Farr MD [address] [address] Reji Farr MD [address] [place] [id number] Referral ID Status Reason Start Date Expiration Date V isits Requested Visits Authorized [id number] Authorized 02/05/2022 02/05/2023 4 4 Reason Onset Date Comments Refill Request 05/01/2022 Reason Comments Established Patient NEEDS COLONOSCOPY ( 2019 ) LODI Reason Comments Pharmacy Customer Care Specialist - Other Reason Comments Insurance Authorization Referral ID Status Reason Start Date Expiration Date Visits Re quested Visits Authorized [id number] Closed 02/05/2022 02/05/2023 4 4 Reason Comments Hereditary spastic paraparesis Specialty Diagnoses / Procedures Referred By Contac t Referred To Contact Diagnoses Hereditary spastic paraparesis (HCC) Procedures PROVIDER ORDERED FOLLOW UP OFFICE/OUTPATIENT NEW HIGH MDM 60-74 MINUTES Mickey Schmidt MD [address] [place] [address] Referral ID Status Reason Start Date Expiration Date V isits Requested Visits Authorized [id number] Closed PCP Requested Referral 06/06/2022 09/04/2022 1 1 Specialty Diagnoses / Procedures Referred By Contact Referred To Contact [facility] Diagnoses Other muscle spasm Other dystonia Procedures CHEMODENERVATION ONE EXTREMITY 1-4 MUSCLE BOTULINUM TOXIN A PER 1 UNIT Reji Farr MD [address] [address] [facility] [address] [address] Referral ID Status Reason Start Date Expiration Date V isits Requested Visits Authorized [id number] Authorized 02/21/2023 02/22/2024 4 4 Specialty Diagnoses / Procedures Referred By Contact Referred To Contact [facility] Diagnoses Paraplegia, incomplete Other muscle spasm Procedures NEEDLE EMG GUIDANCE FOR CHEMODENERVATION BOTULINUM TOXIN A PER 1 UNIT CHEMODENERVATION ONE EXTREMITY 1-4 MUSCLE Reji Farr MD [address] [address] [facility] [address] [address] Referral ID Status Reason Start Date Expiration Date V isits Requested Visits Authorized [id number] Authorized 04/28/2023 04/28/2024 4 4 Reason Comments HSP (hereditary spstic paraplegia) Specialty Diagnoses / Procedures Referred By Contac t Referred To Contact Diagnoses HSP (hereditary spastic paraplegia) (HCC) Spasticity Procedures PROVIDER ORDERED FOLLOW UP OFFICE/OUTPATIENT NEW HIGH MDM 60-74 MINUTES Mickey Schmidt MD [address] [place] [address] Referral ID Status Reason Start Date Expiration Date V isits Requested Visits Authorized [id number] Closed PCP Requested Referral 12/05/2022 03/05/2023 1 1 Reason Comments HSP Specialty Diagnoses / Procedures Referred By Contac t Referred To Contact Diagnoses HSP (hereditary spastic paraplegia) (HCC) Procedures PROVIDER ORDERED FOLLOW UP OFFICE/OUTPATIENT NEW HIGH MDM 60-74 MINUTES Mickey Schmidt MD [address] [place] [address] Referral ID Status Reason Start Date Expiration Date V isits Requested Visits Authorized [id number] Closed PCP Requested Referral 06/12/2023 09/10/2023 1 1 Care Teams (unrecognized sec tion and content) Rack Room Worker Relationship Specialty Start Date End Date Asa Godinez MD [address] [place], [place] [id number] PCP - General Internal Medicine 09/29/18 Mickey Schmidt MD [address] [place] [address] Neurology 09/29/18 Rack Room Worker Relationship Specialty Start Date End Date Asa Godinez MD [address] [place] [address] PCP - General Internal Medicine 09/29/18 Mickey Schmidt MD [address] [place] [address] Neurology 09/29/18 Rack Room Worker Relationship Specialty Start Date End Date Asa Godinez MD [address] [place] [address] PCP - General Internal Medicine 09/29/18 Mickey Schmidt MD [address] [place] [address] Neurology 09/29/18 Rack Room Worker Relationship Specialty Start Date End Date Mickey Schmidt MD [address] [place] [address] Neurology 09/29/18 Rack Room Worker Relationship Specialty Start Date End Date Mickey Schmidt MD [address] [place] [address] Neurology 09/29/18 Rack Room Worker Relationship Specialty Start Date End Date Crosby, Enedelia G, MD [address] [place] [address] PCP - General Internal Medicine 12/27/21 Mickey Schmidt MD [address] [place] [address] Neurology 09/29/18 Rack Room Worker Relationship Specialty Start Date End Date Asa Godinez MD [address] [place] [address] PCP - General Internal Medicine 12/27/21 Mickey Schmidt MD [address] [place] [address] Neurology 09/29/18 Rack Room Worker Relationship Specialty Start Date End Date Asa Godinez MD [address] [place] [address] PCP - General Internal Medicine 12/27/21 Mickey Schmidt MD [address] [place] [address] Neurology 09/29/18 Rack Room Worker Relationship Specialty Start Date End Date Asa Godinez MD [address] [place] [address] PCP - General Internal Medicine 12/27/21 Mickey Schmidt MD [address] [place] [address] Neurology 09/29/18 Rack Room Worker Relationship Specialty Start Date End Date Asa Godinez MD [address] [place] [address] PCP - General Internal Medicine 12/27/21 Mickey Schmidt MD [address] [place] [address] Neurology 09/29/18 Rack Room Worker Relationship Specialty Start Date End Date Asa Godinez MD [address] [place] [address] PCP - General Internal Medicine 12/27/21 Mickey Schmidt MD [address] [place] [address] Neurology 09/29/18 Rack Room Worker Relationship Specialty Start Date End Date Asa Godinez MD [address] [place] [address] PCP - General Internal Medicine 12/27/21 Mickey Schmidt MD [address] [place] [address] Neurology 09/29/18 Rack Room Worker Relationship Specialty Start Date End Date Asa Godinez MD [address] [place] [address] PCP - General Internal Medicine 12/27/21 Mickey Schmidt MD [address] [place] [address] Neurology 09/29/18 Rack Room Worker Relationship Specialty Start Date End Date Asa Godinez MD [address] [place] [address] PCP - General Internal Medicine 12/27/21 Mickey Schmidt MD [address] [place] [address] Neurology 09/29/18 Rack Room Worker Relationship Specialty Start Date End Date Asa Godinez MD [address] [place] [address] PCP - General Internal Medicine 12/27/21 Mickey Schmidt MD [address] [place] [address] Neurology 09/29/18 Rack Room Worker Relationship Specialty Start Date End Date Asa Godinez MD [address] [place] [address] PCP - General Internal Medicine 12/27/21 Mickey Schmidt MD [address] [place] [address] Neurology 09/29/18 Rack Room Worker Relationship Specialty Start Date End Date Asa Godinez MD [address] [place] [address] PCP - General Internal Medicine 12/27/21 Mickey Schmidt MD [address] [place] [address] Neurology 09/29/18 Rack Room Worker Relationship Specialty Start Date End Date Asa Godinez MD [address] [place] [address] PCP - General Internal Medicine 12/27/21 Mickey Schmidt MD [address] [place] [address] Neurology 09/29/18 Rack Room Worker Relationship Specialty Start Date End Date Asa Godinez MD [address] [place] [address] PCP - General Internal Medicine 12/27/21 Mickey Schmidt MD [address] [place] [address] Neurology 09/29/18 Rack Room Worker Relationship Specialty Start Date End Date Asa Godinez MD [address] [place] [address] PCP - General Internal Medicine 12/27/21 Mickey Schmidt MD [address] [place] [address] Neurology 09/29/18 FOR RECORDS PERTAINING TO PATIENTS WHO ARE OR HAVE BEEN ENROLLED IN A CHEMICAL DEPENDENCY/SUBSTANCEABUSE PROGRAM, SOME INFORMATION MAY BE OMITTED. This clinical summary was aggregated from multiple sources. Caution should be exercised in using it in the provision of clinical care. This summary normalizes information from multiple sources, and as a consequence, information in this document may materially change the coding, format and clinical context of patient data. In addition, data may be omitted in some cases. CLINICAL DECISIONS SHOULD BE BASED ON THE PRIMARY CLINICAL RECORDS. [facility] [employer] [facility]. provides no warranty or guarantee of the accuracy or completeness of information in this document.
[2024-04-28 12:40] LABS: Vitamin B12 842 pg/mL (211-911)
== END | disposition home or self-care (01) ==
LOC: BIMLAB 08:12
PROVIDERS: PCP Internal Medicine; Referring Provider Internal Medicine; Visit Provider Internal Medicine
DX: Z00.00 Encounter for general adult medical examination without abnormal findings (principal); R60.0 Localized edema; E53.8 Deficiency of other specified B group vitamins
CPT/HCPCS: 36415; 82306; 82607; 84443